=== PATIENT | female | born 1980 | race Caucasian/White ===

== ENCOUNTER 2020-03-27 13:06 | Emergency (ER) | payer OTHER, SELFPAY ==
[2020-03-27 13:21] VITALS: BP 144/88; PULSE 78; RESP 18; TEMP 36.8; O2SAT 100; BMI 31.1
--- NOTE | 2020-03-27 14:28 | ED_ITS ---
HPI - General Adult General Chief complaint: Recheck/Abnormal Lab/Rx Stated complaint: abnormal labs Time Seen by Provider: 03/27/20 14:11 Source: patient Mode of arrival: ambulatory Limitations: no limitations History of Present Illness HPI narrative: 39-year-old female who presents emergency department for evaluat ion elevated glucose of 228 noted at [facility]. The patient states that she has not been feeling well for approximately 1 month. She states that she has had increased thirst and increased urinary frequency. She states she has been feeling fatigued. She has had no change in her vision. She states that she has had approximately 5 lb of unintentional weight loss. She states that she started her menses and she started to feel worse. She was concerned that she might have diabetes and she bought a glucose monitor and her glucose at home was 280. She contacted her PCP's office but since she is in you patient, they could not get her in for an appointment until April of 2020 Related Data Previous Rx's Medication Instructions Recorded metformin 500 mg PO BID #60 tab 03/27/20 Allergies Allergy/AdvReac Type Severity Reaction Status Date / Time lactose Allergy Mild Stomach Uncoded 03/27/20 13:29 Upset PMFSH Past Medical History Medical History (Updated 03/27/20 @ 16:11 by Víctor Escalera MD) No known health problems Social History Social History Alcohol intake: never Smoking Status: Never smoker Use of substances other than those prescribed or required for medical reasons: No Advance Directives: No Advance Directives Information Provided: Yes Physical Exam Vital Signs: Vital Signs: Last Vital Signs Temp 98.7 F 03/27/20 15:06 Pulse 64 03/27/20 15:06 Resp 16 03/27/20 15:06 BP 142/85 H 03/27/20 15:06 Pulse Ox 100 03/27/20 15:06 Body Mass Index 31.1 Course Course Course Narrative: 39-year-old female who presents department evaluation fr equency, increased thirst and elevated glucose. Patient's physical examination was unremarkable. The patient's laboratory evaluation did reveal an elevated glucose of 212. Urine test was negative, urinalysis was positive for blood but the patient is menstruating. Patient's coags were normal. The patient's presentation is consistent with new onset diabetes, type 2. The patient is symptomatic. The patient cannot follow up with her PCP until 1 month from now I did discuss management of diabetes with the patient. After this discussion, it was decided the patient will be started on metformin Medical Decision Making Lab Data Result diagrams: 03/27/20 14:45 03/27/20 14:45 Labs: Lab Results 03/27/20 03/27/20 03/27/20 Range/Units 14:45 14:45 14:45 WBC 8.3 (4.8-10.8) X10*3/uL RBC 6.00 H (4.20-5.50) X10*6/uL Hgb 13.0 (12.0-16.0) g/dl Hct 41.2 (37-47) % MCV 68.7 L (80-98) fL MCH 21.7 L (27.0-33.0) pg MCHC 31.6 (31.0-35.0) g/dl RDW 14.6 (11.0-16.0) % Plt Count 359 (160-400) X10*3/uL MPV 10.1 (9.4-12.3) fL Immature Gran % (Auto) 0.4 (0.0-0.4) % Neut % (Auto) 70.5 (45-73) % Lymph % (Auto) 22.4 (20-40) % Hawkins % (Auto) 4.3 (2-11) % Eos % (Auto) 2.0 (0-4) % Baso % (Auto) 0.4 (0-2) % Lymph # (Auto) 1.9 (1.2-4.9) X10*3/uL Hawkins # (Auto) 0.4 (0.1-1.2) X10*3/uL Eos # (Auto) 0.2 (0.0-0.4) X10*3/uL Baso # (Auto) 0.0 (0.0-0.2) X10*3/uL Abs Immat Gran (auto) 0.03 (0.00-0.03) X10*3/uL Absolute Neuts (auto) 5.9 (2.0-8.3) X10*3/uL Absolute Nucleated RBC 0.000 (0.0-0.012) X10*3/uL Nucleated RBC % (auto) 0.0 (0.0-0.2) /100WBC PT 13.0 (10.8-13.0) SEC INR 1.1 (0.9-1.1) APTT 31.9 (24.1-38.0) SEC Sodium 136 (135-145) mmol/L Potassium 4.1 (3.3-5.1) mmol/L Chloride 101 (96-108) mmol/L Carbon Dioxide 25 (22-29) mmol/L Anion Gap 14 (12-20) BUN 11 (9-16) mg/dL Creatinine 0.89 (0.5-1.4) mg/dL Estim Creat Clear Calc 79.9 Estimated GFR > 60 Random Glucose 212 H (60-115) mg/dL Calcium 9.6 (8.4-10.2) mg/dL Total Bilirubin 0.9 (0.0-1.0) mg/dL AST 27 (5-31) U/L ALT 33 H (0-31) U/L Alkaline Phosphatase 96 (39-117) U/L Total Protein 8.3 H (6.5-8.0) g/dL Albumin 4.4 (3.5-5.0) g/dL Urine Color Urine Appearance Urine pH (5.0-8.0) Ur Specific [place] (1.005-1.025) Urine Protein (NEG-TRACE) MG/DL Urine Glucose (UA) (NEG) MG/DL Urine Ketones (NEG) MG/DL Urine Blood (NEG) Urine Nitrite (NEG) Ur Leukocyte Esterase (NEG) Urine RBC (0) /HPF Urine WBC (0-4) /HPF Ur Squamous Epith Cells /LPF Urine Bacteria /LPF Urine Test (NEGATIVE) 03/27/20 Range/Units 15:32 WBC (4.8-10.8) X10*3/uL RBC (4.20-5.50) X10*6/uL Hgb (12.0-16.0) g/dl Hct (37-47) % MCV (80-98) fL MCH (27.0-33.0) pg MCHC (31.0-35.0) g/dl RDW (11.0-16.0) % Plt Count (160-400) X10*3/uL MPV (9.4-12.3) fL Immature Gran % (Auto) (0.0-0.4) % Neut % (Auto) (45-73) % Lymph % (Auto) (20-40) % Hawkins % (Auto) (2-11) % Eos % (Auto) (0-4) % Baso % (Auto) (0-2) % Lymph # (Auto) (1.2-4.9) X10*3/uL Hawkins # (Auto) (0.1-1.2) X10*3/uL Eos # (Auto) (0.0-0.4) X10*3/uL Baso # (Auto) (0.0-0.2) X10*3/uL Abs Immat Gran (auto) (0.00-0.03) X10*3/uL Absolute Neuts (auto) (2.0-8.3) X10*3/uL Absolute Nucleated RBC (0.0-0.012) X10*3/uL Nucleated RBC % (auto) (0.0-0.2) /100WBC PT (10.8-13.0) SEC INR (0.9-1.1) APTT (24.1-38.0) SEC Sodium (135-145) mmol/L Potassium (3.3-5.1) mmol/L Chloride (96-108) mmol/L Carbon Dioxide (22-29) mmol/L Anion Gap (12-20) BUN (9-16) mg/dL Creatinine (0.5-1.4) mg/dL Estim Creat Clear Calc Estimated GFR Random Glucose (60-115) mg/dL Calcium (8.4-10.2) mg/dL Total Bilirubin (0.0-1.0) mg/dL AST (5-31) U/L ALT (0-31) U/L Alkaline Phosphatase (39-117) U/L Total Protein (6.5-8.0) g/dL Albumin (3.5-5.0) g/dL Urine Color RED Urine Appearance TURBID Urine pH 6.0 (5.0-8.0) Ur Specific [place] 1.020 (1.005-1.025) Urine Protein 1+ H (NEG-TRACE) MG/DL Urine Glucose (UA) 100 H (NEG) MG/DL Urine Ketones 40 (NEG) MG/DL Urine Blood 3+ H (NEG) Urine Nitrite NEG (NEG) Ur Leukocyte Esterase TRACE H (NEG) Urine RBC TNTC H (0) /HPF Urine WBC 0-2 (0-4) /HPF Ur Squamous Epith Cells NONE /LPF Urine Bacteria NONE /LPF Urine Test NEGATIVE (NEGATIVE) Discharge Plan Discharge Clinical Impression: New onset type 2 diabetes mellitus, Acute hyperglycemia, Acute dehydration Patient Disposition: Home, Self-Care Instructions: Diabetes and Nutrition (ED), Diabetes and Exercise (ED), Type 2 Diabetes Management for Adults (ED) Additional Instructions: Your symptoms and your elevated glucose is consistent with new onset diabetes. Take metformin 500 mg pills, 1 pill before breakfast and 1 pill before dinner. Check your glucose before breakfast and dinner. Write these values down so that you can show them to your doctor. Do not be concerned about any glucose that is less than 350. Over the next 1-2 weeks, while you taking metformin, your glucose should come down to more normal range. Watch for signs of low glucose (hypoglycemia), sweatiness, lightheadedness, dizziness, confusion. Usually your glucose has to drop below 60 for you to be symptomatic. If you developed the symptoms you should eat candy with sugar in it or orange juice with sugar in it to get your glucose of above 60 Prescriptions: New metformin 500 mg tablet 500 mg PO BID Qty: 60 RF: 0
[2020-03-27] MEDS: 0.9 % Sodium Chloride 1,000 ML 999 ML IV (14:50)
[2020-03-27 14:53] LABS: MANUAL DIFF FLAG NO
[2020-03-27 14:55] LABS: Basophils Percent Auto 0.4 % (0-2); Eosinophils Absolute Auto 0.2 X10*3/uL (0.0-0.4); Hematocrit 41.2 % (37-47); Imm Gran Abs Auto 0.03 X10*3/uL (0.00-0.03); Imm Gran Pct Auto 0.4 % (0.0-0.4); Lymphocytes Absolute Auto 1.9 X10*3/uL (1.2-4.9); Lymphocytes Percent Auto 22.4 % (20-40); Mean Corpuscular HGB Conc 31.6 g/dl (31.0-35.0); Mean Corpuscular Hemoglobin 21.7 pg (27.0-33.0); Mean Corpuscular Volume 68.7 fL (80-98); Mean Platelet Volume 10.1 fL (9.4-12.3); Monocytes Absolute Auto 0.4 X10*3/uL (0.1-1.2); Monocytes Percent Auto 4.3 % (2-11); Neutrophils Absolute Auto 5.9 X10*3/uL (2.0-8.3); Neutrophils Percent Auto 70.5 % (45-73); Platelet Count 359 X10*3/uL (160-400); Red Cell Distribution Width 14.6 % (11.0-16.0); White Blood Count 8.3 X10*3/uL (4.8-10.8)
--- NOTE | 2020-03-27 14:57 | PC.NURSE ---
WHEN PLACING 20 G IV IN R AC, BLOOD DRAWN WITHOUT DIFFICULTY,BUT THEN WHEN FLUSHING, 1/2 WAY THROUGH IT BECAME DIFFICULT AND UNABLE TO FLUSH, THE J LOOP WAS CLOTTED AND I REPLACED IT WITH A NEW ONE, THE 2ND ONE WORKED PERFECTLY INITIALLY THE AGAIN THERE WAS RESISTANCE AND UNABLE TO FLUSH, HOWEVER THIS TIME WAS ABLE TO FLUSH IT WITH ANOTHER SYRINGE, INFORMED AND COAGULATION STUDIES ADDED BY ,
[2020-03-27 15:06] VITALS: BP 142/85; PULSE 64; RESP 16; TEMP 37.1; O2SAT 100
[2020-03-27 15:18] LABS: Alanine Aminotransferase 33 U/L (0-31); Albumin Level 4.4 g/dL (3.5-5.0); Alkaline Phosphatase 96 U/L (39-117); Anion Gap 14 (12-20); Aspartate Amino Transferase 27 U/L (5-31); Bilirubin Total 0.9 mg/dL (0.0-1.0); Blood Urea Nitrogen 11 mg/dL (9-16); Calcium 9.6 mg/dL (8.4-10.2); Carbon Dioxide 25 mmol/L (22-29); Chloride 101 mmol/L (96-108); Creatinine Clr Calc Pharmacy 79.9; Estimated Glomerular Filt Rate > 60; Glucose Random 212 mg/dL (60-115); Potassium 4.1 mmol/L (3.3-5.1); Sodium 136 mmol/L (135-145); Total Protein 8.3 g/dL (6.5-8.0)
[2020-03-27 15:53] LABS: INTERNATIONAL NORM RATIO 1.1 (0.9-1.1)
[2020-03-27 15:53] LABS: Glucose Urine UA 100 MG/DL (NEG); Leukocyte Esterase Urine TRACE (NEG); Nitrite Urine NEG (NEG); UACC Culture Trigger YES; Urine Blood 3+ (NEG); Urine Ketones 40 MG/DL (NEG); Urine Protein 1+ MG/DL (NEG-TRACE)
[2020-03-27 15:56] LABS: Partial Thromboplastin Time 31.9 SEC (24.1-38.0)
[2020-03-27 16:01] LABS: Appearance Urine TURBID; Color Urine RED; RBC Urine TNTC /HPF (0); WBC Urine 0-2 /HPF (0-4)
[2020-03-27 16:02] LABS: UPreg QC Valid OK; Urine Pregnancy NEGATIVE (NEGATIVE)
== END 2020-03-27 16:31 | disposition home or self-care (01) ==
PROVIDERS: Emergency Provider Emergency Medicine Emergency Medical Services; PCP Internal Medicine
DX: E11.65 Type 2 diabetes mellitus with hyperglycemia (principal); E86.0 Dehydration
CPT/HCPCS: 36415; 80053; 81001; 81003; 81025; 85025; 85610; 85730; 87086; 87147; 96360; 99284

== ENCOUNTER 2020-03-31 09:14 | Outpatient (REF) | payer OTHER, SELFPAY ==
[2020-03-31 12:08] LABS: Cholesterol 123 mg/dL; HDL Cholesterol 50 mg/dL; LDL Cholesterol Calculated 66 mg/dl; Triglycerides 35 mg/dL
== END 2020-03-31 09:15 | disposition home or self-care (01) ==
LOC: HO.HMGCLDS 09:14
PROVIDERS: PCP Internal Medicine; Visit Provider Internal Medicine
DX: E11.65 Type 2 diabetes mellitus with hyperglycemia (principal)
CPT/HCPCS: 36415; 80061

== ENCOUNTER 2020-04-02 10:12 | Outpatient (REF) | payer OTHER, SELFPAY ==
[2020-04-02 12:43] LABS: Creatinine Urine 53.67 mg/dL; Microalbumin Urine < 5.0 mg/L
== END 2020-04-02 10:13 | disposition home or self-care (01) ==
LOC: HO.HMGCLNP 10:12
PROVIDERS: Visit Provider Internal Medicine
DX: E11.65 Type 2 diabetes mellitus with hyperglycemia (principal)
CPT/HCPCS: 82043

== ENCOUNTER → 2020-05-14 08:29 | Outpatient (BNVA) | payer OTHER, SELFPAY | PROVIDERS: PCP Internal Medicine; Visit Provider Nurse Practitioner Gerontology | DX: E11.65 Type 2 diabetes mellitus with hyperglycemia (principal); E66.3 Overweight | CPT/HCPCS: 82947 ==

== ENCOUNTER 2020-06-05 07:56 | Outpatient (REF) | payer OTHER, SELFPAY ==
[2020-06-05 09:18] LABS: Anion Gap 12 (12-20); Blood Urea Nitrogen 10 mg/dL (9-16); Calcium 9.4 mg/dL (8.4-10.2); Carbon Dioxide 27 mmol/L (22-29); Chloride 103 mmol/L (96-108); Estimated Glomerular Filt Rate > 60; Glucose Fasting 127 mg/dL (60-99); Potassium 4.4 mmol/L (3.3-5.1); Sodium 138 mmol/L (135-145)
[2020-06-05 09:41] LABS: Thyroid Stimulating Hormone 1.97 uIU/mL (0.32-4.0)
[2020-06-06 07:16] LABS: C Peptide 1.51 ng/mL (0.80-3.85)
[2020-06-09 08:52] LABS: Glutamic acid decarboxylase Ab <5 IU/mL (<5)
[2020-06-12 02:22] LABS: Islet Cell Antibody Screen NEGATIVE (NEGATIVE)
== END 2020-06-05 07:57 | disposition home or self-care (01) ==
LOC: HO.LAB 07:56
PROVIDERS: PCP Internal Medicine; Visit Provider Nurse Practitioner Gerontology
DX: E11.65 Type 2 diabetes mellitus with hyperglycemia (principal)
CPT/HCPCS: 36415; 80048; 83525; 84443; 84681; 86255; 86341

== ENCOUNTER → 2020-07-28 12:34 | Outpatient (BNVA) | payer OTHER, SELFPAY | PROVIDERS: PCP Internal Medicine; Visit Provider Dietitian, Registered | DX: E11.65 Type 2 diabetes mellitus with hyperglycemia (principal) | CPT/HCPCS: 97802 ==

== ENCOUNTER → 2020-08-10 07:17 | Outpatient (BNVA) | payer OTHER, SELFPAY | PROVIDERS: PCP Internal Medicine; Visit Provider Nurse Practitioner Gerontology | DX: E11.65 Type 2 diabetes mellitus with hyperglycemia (principal); E66.3 Overweight | CPT/HCPCS: 82947 ==

== ENCOUNTER → 2021-04-18 14:59 | Outpatient (BNVA) | payer OTHER, SELFPAY | PROVIDERS: PCP Internal Medicine; Visit Provider Nurse Practitioner Gerontology ==

== ENCOUNTER → 2021-05-12 15:15 | Outpatient (BNVA) | payer OTHER, SELFPAY | PROVIDERS: PCP Internal Medicine; Visit Provider Registered Nurse Diabetes Educator | DX: Z13.89 Encounter for screening for other disorder (principal) ==

== ENCOUNTER 2021-08-26 09:06 | Outpatient (REF) | payer OTHER, SELFPAY ==
[2021-08-26 11:49] LABS: Alanine Aminotransferase 18 U/L (0-31); Anion Gap 11 (12-20); Aspartate Amino Transferase 15 U/L (5-31); Blood Urea Nitrogen 10 mg/dL (9-16); Calcium 8.9 mg/dL (8.4-10.2); Carbon Dioxide 25 mmol/L (22-29); Chloride 105 mmol/L (96-108); Cholesterol 129 mg/dL; Estimated Glomerular Filt Rate > 60; Glucose Fasting 124 mg/dL (60-99); HDL Cholesterol 48 mg/dL; LDL Cholesterol Calculated 70 mg/dl; Potassium 4.2 mmol/L (3.3-5.1); Sodium 137 mmol/L (135-145); Triglycerides 58 mg/dL
[2021-08-26 12:00] LABS: Creatinine Urine 88.06 mg/dL; Microalbumin Urine < 5.0 mg/L
[2021-08-26 12:16] LABS: Vitamin D 25-OH Total 41.4 ng/mL (>30)
[2021-08-29 01:46] LABS: LDL Cholesterol Direct 69 mg/dL (<100)
== END 2021-08-26 09:07 | disposition home or self-care (01) ==
LOC: HO.HMGCLDS 09:06
PROVIDERS: PCP Internal Medicine; Visit Provider Internal Medicine
DX: Z00.01 Encounter for general adult medical examination with abnormal findings (principal); E11.9 Type 2 diabetes mellitus without complications; E66.3 Overweight; Z79.4 Long term (current) use of insulin
CPT/HCPCS: 36415; 80048; 80061; 82043; 82306; 83721; 84450; 84460

== ENCOUNTER 2022-11-02 07:26 | Outpatient (REF) | payer OTHER, SELFPAY ==
[2022-11-02 12:06] LABS: Alanine Aminotransferase 20 U/L (0-31); Anion Gap 11 (12-20); Aspartate Amino Transferase 17 U/L (5-31); Blood Urea Nitrogen 10 mg/dL (9-16); Calcium 9.3 mg/dL (8.4-10.2); Carbon Dioxide 22 mmol/L (22-29); Chloride 108 mmol/L (96-108); Cholesterol 126 mg/dL (<200); Estimated Glomerular Filt Rate > 60; Glucose Fasting 130 mg/dL (60-99); HDL Cholesterol 51 mg/dL (>40); LDL Cholesterol Calculated 66 mg/dL (<100); Sodium 137 mmol/L (135-145); Triglycerides 47 mg/dL (<150)
[2022-11-02 12:19] LABS: Estimated Average Glucose 154 mg/dL
[2022-11-02 12:25] LABS: Rheumatoid Factor < 13.0 IU/mL (<15.0)
[2022-11-02 12:51] LABS: Erythrocyte Sedimentation Rate 20 MM/HR (0-20)
[2022-11-02 13:09] LABS: Creatinine Urine 134.79 mg/dL; Microalbumin Urine < 5.0 mg/L
[2022-11-08 09:54] LABS: CRP High Sensitivity 4.7 mg/L
[2022-11-08 12:13] LABS: Anti Nuclear Antibody Screen POSITIVE (NEGATIVE)
== END 2022-11-02 07:27 | disposition home or self-care (01) ==
LOC: HO.HMGCLDS 07:26
PROVIDERS: PCP Internal Medicine; Visit Provider Internal Medicine
DX: E11.9 Type 2 diabetes mellitus without complications (principal); E66.9 Obesity, unspecified; M25.50 Pain in unspecified joint; Z79.4 Long term (current) use of insulin; Z82.61 Family history of arthritis
CPT/HCPCS: 36415; 80048; 80061; 82043; 82570; 83036; 84450; 84460; 85652; 86038; 86039; 86141; 86431

== ENCOUNTER 2022-12-04 11:46 | Outpatient (AMB) | payer OTHER, SELFPAY ==
--- NOTE | 2022-12-04 12:21 | A.OFFPC_ITS ---
Vital Signs 12/04/22 12:22 Height 5 ft 2 in Weight 172 lb 2 oz BMI 31.5 BP 122/82 Blood Pressure Location Lt brachial Position Sitting Pulse 67 Pulse Source Pulse Oximeter Pulse Oximetry (%) 100 Oxygen Delivery Method Room Air Intake Visit Reasons: follow up, labs review Intake Note: Patient is here today to follow up labs, Pt also states has stomach concerns. Allergies lactose Adverse Reaction (Mild, Uncoded 12/04/22 12:44) Stomach Upset Medication List - Last Reconciled 12/04/22 by Sowmya Castellanos MD blood sugar diagnostic (OneTouch Verio test strips) to test blood glucose two times a day blood-glucose meter (OneTouch Verio Flex Meter) to test blood glucose two times a day lancets (OneTouch Delica Lancets) As directed twice a day lancets (FreeStyle Lancets) As directed three time a day metformin 500 mg PO BID Tobacco use date assessed: 12/04/22 Dental Screening Dental Screen Date: 12/04/22 Did you have a dental visit in the last 12 months?: Yes Did you have a dental problem in the last 6 months where you did not have access to dental care?: No Was dental information given to patient?: Patient has dentist HPI follow up, labs review HPI Details 42-year-old lady here today for follow-u p on her diabetes mellitus, currently on metformin 500 mg 1 tablet twice a day, with latest hemoglobin A1c at 7%, higher than last check. , her fasting lipids are within normal limits, Complains of irregular bowel movements, with passage of frequent loose stools accompanied by abdominal bloating , causing pain behind her lower back this has been present now for the last several months and seems to be getting more frequent. She has avoided drinking almond milk, which she found to trigger these symptoms, has been avoiding a lot of salt, eat a bland diet. [facility] Medical History (Updated 12/04/22 @ 13:07 by Sowmya Castellanos MD) Irregular bowel habits Family history of colon cancer in mother Arthralgia of multiple joints Positive JACKIE (antinuclear antibody) Elevated C-reactive protein (CRP) Family history of rheumatoid arthritis Obesity (BMI 30.0-34.9) Diabetes mellitus without complication, with long-term current use of insulin Surgical History History of lumpectomy of right breast History of lumpectomy of left breast History of tubal ligation History of section Family History Father Diabetes mellitus Mother Breast cancer Colon cancer Uterine cancer Anxiety Depression HTN (hypertension) Asthma Stroke Mental health disorder Leiomyosarcoma Maternal Aunt Stomach cancer Brother No problems noted. Son No problems noted. Daughter No problems noted. Maternal Grandmother Diabetes mellitus Social History Household Members: Family Housing: House Alcohol intake: never Patient Tobacco Use Status: Never used Tobacco e-Cigarette/Vaping Use: Never Used Second Hand Smoke Exposure: No service: No Current occupational status: employed Cognitive needs: No Hearing needs: No Vision needs: Yes Questionnaire PHQ-9 Over the last 2 weeks, how often have you been bothered by any of the following problems? Depression Screening Interpretation: Negative Depression Screening Done: Yes Source: Developed by Drs. Mk Ireland, Delia Le, Chepe Machuca and colleagues, with an educational caroline from [employer]. Thrive Questionnaire Date Thrive assessed: 05/11/22 AUDIT C Alcohol Use Questionnaire (AUDIT-C) 1. How often do you have a drink containing alcohol?: Never 3. How often do you have six or more drinks on one occasion?: Never Total Score: 0 Score Reviewed/Action Taken: Yes DIANNE-7 AMB Questionnaire DIANNE-7 Date DIANNE - 7 assessed: 05/11/22 Source: Developed by Drs. Mk Ireland, Delia Le, Chepe Machuca and colleagues, with an educational caroline from [employer]. Review of Systems Const Denies headache(s) Eyes Details: sees [facility] [employer] for her retinopathy screen Denies blurry vision ENT Denies dizziness, Denies dry mouth, Denies headache(s), Denies nasal congestion and Denies sore throat Card Denies chest pain, Denies palpitations and Denies dyspnea Resp Denies cough, Denies dyspnea and Denies wheezing GI Reports as per HPI, Denies melena, Denies hematochezia, Denies heartburn, Denies fecal incontinence and Denies nausea Denies urinary frequency and Denies dysuria Musc Reports as per HPI, Reports arthralgias (elbows and upper back), Denies joint swelling, Denies muscle weakness, Denies numbness and Denies tingling Skin/Breast Denies breast swelling, Denies breast mass, Denies lesions and Denies rash Neuro Denies burning sensations, Denies dizziness, Denies headache(s), Denies numb ness, Denies tingling and Denies paresthesias Endo Denies polydipsia, Denies polyuria and Denies palpitations Chris/Lymph Denies easy bruising Aller/Immun Reports no additional complaints and Denies wheezing Physical exam (Primary Care) Vital Signs: Last Vital Signs Pulse 67 12/04/22 12:22 BP 122/82 12/04/22 12:22 Pulse Ox 100 12/04/22 12:22 Oxygen Delivery Method Room Air 12/04/22 12:22 BMI result Body Mass Index 31.5 BMI Assessment/Plan discussion: High BMI High, discussed plan: lifestyle, weight reduction, dietary and physical activity Tobacco/Smoking Status: Tobacco use Status Tobacco use date assessed 12/04/22 12/04/22 12:24 Patient Tobacco Use Status Never used Tobacco 12/04/22 12:24 e-Cigarette/Vaping Use Never Used 12/04/22 12:24 Depression Screening Interpretation: Negative Thrive Assessment: Date of Thrive Assessment Date Thrive assessed 05/11/22 12/04/22 12:24 Const General: cooperative, comfortable and no acute distress Orientation/consciousness: patient oriented x3 Limitations: no limitations HENMT Mouth: Normal oral and palatal mucosa present, oropharynx normal and moist mucous membranes Eyes General: appearance normal, both eyes and all related structures Neck Neck: Yes full ROM, Yes no lymphadenopathy and Yes supple Resp Effort & Inspection: normal respiratory effort and able to speak in complete sentences Auscultation: clear to auscultation bilaterally Cardio Rate: regular rate Rhythm: regular rhythm Heart sounds: S1 normal heart sound present and S2 normal heart sound present GI Palpation (GI): Soft to palpation, nontender, no guarding and no masses Skin General skin exam: no rashes or lesions noted Neuro General: patient oriented x3, gait normal, tone normal, moves all extremities and no focal motor deficits Cognition (Neuro): normal cognition Gait exam (Neuro): Normal gait present Motor exam (neuro): 5/5 motor strength present throughout Extrem General: Yes full ROM, Yes no joint enlargement, Yes no pedal edema, Yes no calf tenderness and Yes normal gait Psych Appearance: grossly normal and well kempt Mental Status: mental status grossly normal Speech and movement: Normal speech and movement present Attitude: cooperative Thought process: Normal thought process present Thought content: Normal thought content present Results Reviewed Results Reviewed: ENTERED: 11/02/22 KEITH BANKS: ORDERED: Met Prof Fast, AST, ALT, Lipid Panel Test Result Flag Reference Site Sodium 137 135-145 mmol/L Potassium 4.0 3.3-5.1 mmol/L CL 108 96-108 mmol/L CO2 22 22-29 mmol/L Gap 11 L 12-20 BUN 10 9-16 mg/dL Creat 0.80 0.5-1.4 mg/dL EGFR > 60 NOTE: For -Iraqi individuals, multiply the result by 1.210. Chronic Kidney Disease: Estimated GFR < 60 mL/min/1.73m2 Severe Kidney Disease: Estimated GFR < 15 mL/min/1.73m2 FBS 130 H 60-99 mg/dL A fasting glucose of 126 mg/dl or greater on more than one occasion is considered diagnostic of diabetes. CA 9.3 8.4-10.2 mg/dL AST (GOT) 17 5-31 U/L ALT (GPT) 20 0-31 U/L Triglyceride 47 <150 mg/dL Desirable Triglyceride: less than 150 mg/dL Borderline High Triglyceride 150-199 mg/dL High Triglyceride: 200-499 mg/dL Very High Triglyceride: greater than or equal to 5OO mg/dL Cholesterol 126 <200 mg/dL Desirable Cholesterol: less than 200 mg/dL Borderline High Cholesterol: 200-239 mg/dL High Cholesterol: greater than 239 mg/dL LDL Calculated 66 <100 mg/dL Desirable LDL: less than 100 mg/dL Near Optimal/Above Optimal LDL: 110-129 mg/dL Borderline High LDL: 130-159 mg/dL High LDL: 160-189 mg/dL Very High LDL: greater than or equal to 190 mg/dL HDL 51 >40 mg/dL Desirable HDL: greater than 40 mg/dL Note: This HDL assay may give artificially low results in patients with liver disease. 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 Metformin 500 mg 1 tablet twice a day and continue to check fasting blood sugar at home, maintain log and bring to next appointment for review. Reinforced diabetic diet and regular exercise with patient. Counseled regarding importance of yearly diabetes retinopathy screening. Patient advised to inspect feet daily, for any signs of injury, callus or infection. Compliance with diet and regular exercise again stressed. Blood pressure goal is less than 130/80, goal LDL is less than 100 and goal hemoglobin A1c is less than 7% follow-up appointment made in--3-months, after fasting labs done. Flu vaccine given today, reminded to get her COVID booster (2) Family history of colon cancer in mother: Code(s): Z80.0 - Family history of malignant neoplasm of digestive organs Plan: Referred to GI for further evaluation and screening (3) Irregular bowel habits: Code(s): R19.8 - Other specified symptoms and signs involving the digestive system and abdomen Plan: Ordered referral to see Dr. Ovalle for further evaluation. Restarted on dicyclomine 20 mg per tablet to take 1 tablet twice a day at 15 units before eating avoidance of food triggers (4) Abdominal bloating with cramps: Code(s): R14.0 - Abdominal distension (gaseous); R10.9 - Unspecified abdominal pain Plan: Discussed avoidance of certain foods. Empirically started on dicyclomine 20 mg per tablet to take 1 tablet twice a day before meals. GI consult ordered Orders: Orders Hemoglobin A1c 3 Months E11.9 - Type 2 diabetes mellitus without complications, E66.9 - Obesity, unspecified, Z79.4 - predatory animal exterminator (current) use of insulin Alanine Aminotransferase 3 Months E11.9 - Type 2 diabetes mellitus without complications, E66.9 - Obesity, unspecified, Z79.4 - USP (current) use of insulin Aspartate Amino Transferase 3 Months E11.9 - Type 2 diabetes mellitus without complications, E66.9 - Obesity, unspecified, Z79.4 - USP (current) use of insulin Basic Metabolic Panel Fasting 3 Months E11.9 - Type 2 diabetes mellitus without complications, E66.9 - Obesity, unspecified, Z79.4 - predatory animal exterminator (current) use of insulin Lipid Panel 3 Months E11.9 - Type 2 diabetes mellitus without complications, E66.9 - Obesity, unspecified, Z79.4 - USP (current) use of insulin Microalbumin, Random (w Creat) 3 Months E11.9 - Type 2 diabetes mellitus without complications, E66.9 - Obesity, unspecified, Z79.4 - predatory animal exterminator (current) use of insulin Influenza [id number] Immunization Today Z23 - Encounter for immunization Referrals Gastroenterology Referral R10.9 - Unspecified abdominal pain, R14.0 - Abdominal distension (gaseous), R19.8 - Other specified symptoms and signs involving the digestive system and abdomen, Z80.0 - Family history of malignant neoplasm of digestive organs Medications: New dicyclomine 20 mg PO BID 60 tabs 0RF flu vacc [id number] 6mos up(PF) 0.5 mL IM ONCE 0.5 mL 0RF Z23 - Encounter for immunization Coding Level of Care Code Est Pt Level 4 (31090) Diagnoses Diabetes mellitus without complication, with long-term current use of insulin E11.9; Z79.4 Family history of colon cancer in mother Z80.0 Irregular bowel habits R19.8 Abdominal bloating with cramps R14.0; R10.9
[2022-12-04 12:22] VITALS: BP 122/82; PULSE 67; O2SAT 100; BMI 31.5
== END 2022-12-04 13:13 | disposition home or self-care (01) ==
PROVIDERS: PCP Internal Medicine; Visit Provider Internal Medicine
DX: E11.9 Type 2 diabetes mellitus without complications (principal); Z79.4 Long term (current) use of insulin; Z80.0 Family history of malignant neoplasm of digestive organs; R19.8 Other specified symptoms and signs involving the digestive system and abdomen; R14.0 Abdominal distension (gaseous); R10.9 Unspecified abdominal pain; Z23 Encounter for immunization
CPT/HCPCS: 90471; 90686; 99214

== ENCOUNTER 2022-12-14 12:51 | Outpatient (AMB) | payer OTHER, SELFPAY ==
[2022-12-14 13:07] VITALS: BP 118/80; PULSE 78; TEMP 36.6; O2SAT 100; BMI 30.8
--- NOTE | 2022-12-14 13:07 | A.OFFVIS_ITS ---
Intake Vital Signs 12/14/22 13:07 Height 5 ft 2 in Weight 168 lb 6.931 oz BMI 30.8 BP 118/80 Blood Pressure Location Rt brachial Position Sitting Pulse 78 Pulse Source Pulse Oximeter Temp 97.9 F Temp Source Skin Pulse Oximetry (%) 100 Intake Visit Reasons: Elev CRP/Joint pain Intake Note: New pt presents today for consult. Pt has elevated CRP, positive JACKIE and family hx of FM, RA and Lupus. She states she has been under a lot of stress since mom was dxd with leomyosarcoma, mom April 2022. C/o pain in multiple joints, headaches. User Experience Designer Required: No Accompanied by: Self / Same As Patient Allergies lactose Adverse Reaction (Mild, Uncoded 12/14/22 13:13) Stomach Upset Medication List - Last Reconciled 12/14/22 by Dyan Billings MD blood sugar diagnostic ([employer] Verio test strips) to test blood glucose two times a day blood-glucose meter ([employer] Verio Flex Meter) to test blood glucose two times a day dicyclomine 20 mg PO BID lancets (OneTouch Delica Lancets) As directed twice a day lancets (FreeStyle Lancets) As directed three time a day metformin 500 mg PO BID multivitamin 1 tab PO DAILY HPI HPI Comments History of Present Illness Details This is a 42-year-old female who presents for for evaluation of a positive JACKIE. Patient has been having fatigue, muscle weakness. Muscle aches in her neck, shoulders and elbows. Her pain is generally worse with activity. Patient states that she sleeps well. She her walks for 20-30 minutes 3 to 4 times a week. She denies any skin rashes, fevers or weight loss. She denies any history of DVT/PE. States that he has an aunt with lupus. Her mother had rheumatoid arthritis, multiple cancers and this year of Leiomysarcoma [facility] Medical History Irregular bowel habits Family history of colon cancer in mother Arthralgia of multiple joints Positive JACKIE (antinuclear antibody) Elevated C-reactive protein (CRP) Family history of rheumatoid arthritis Obesity (BMI 30.0-34.9) Diabetes mellitus without complication, with long-term current use of insulin Surgical History History of lumpectomy of right breast History of lumpectomy of left breast History of tubal ligation History of section Family History Father Diabetes mellitus Mother Breast cancer Colon cancer Uterine cancer Anxiety Depression HTN (hypertension) Asthma Stroke Mental health disorder Leiomyosarcoma Fibromyalgia Rheumatoid arthritis Maternal Aunt Stomach cancer Brother No problems noted. Son No problems noted. Daughter No problems noted. 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 Cognitive needs: No Hearing needs: No Vision needs: Yes Female Reproductive History Menstrual Total pregnancies: 4 Full term: 2 Ab spontaneous: 2 Review of Systems Const Reports fatigue, Reports headache(s) and Reports weakness ENT Reports headache(s) Musc Reports arthralgias Skin/Breast Reports alopecia and Denies rash Neuro Reports headache(s), Reports memory loss and Reports weakness Psych Reports memory loss Endo Reports fatigue Physical Exam Vital Signs: Last Vital Signs Temp 97.9 F 12/14/22 13:07 Pulse 78 12/14/22 13:07 BP 118/80 12/14/22 13:07 Pulse Ox 100 12/14/22 13:07 BMI result Body Mass Index 30.8 Const General: cooperative, healthy appearing and comfortable Nutritional Appearance: overweight Orientation/consciousness: patient oriented x3 Limitations: no limitations HEENT Head: Yes normocephalic and Yes atraumatic Mouth: moist mucous membranes Resp Effort & Inspection: normal respiratory effort and able to speak in complete sentences Auscultation: clear to auscultation bilaterally Cardio Rate: regular rate Rhythm: regular rhythm GI Inspection: No distended Palpation (GI): Soft to palpation and nontender Skin General skin exam: no rashes or lesions noted Neuro General: patient oriented x3 Extrem Other: Tenderness to palpation at the common flexor origin bilaterally With positive resisted wrist flexion test No active synovitis otherwise Normal nailfold capillaroscopy Assessment & Plan Assessment & Plan (1) Positive JACKIE (antinuclear antibody): Code(s): R76.8 - Other specified abnormal immunological findings in serum Plan: This is a 42-year-old female who presents for evaluation of a positive JACKIE 1-320 dfs pattern. I do not see any signs of an autoimmune rheumatic disease. Explained to patient that about 20% of the population can have a positive JACKIE. Follow-up as needed (2) Bilateral medial epicondylitis of elbow joint: Code(s): M77.01 - Medial epicondylitis, right elbow; M77.02 - Medial epicondylitis, left elbow Plan: For to occupational therapy (3) Fibromyalgia, primary: Code(s): M79.7 - Fibromyalgia Plan: Discussed management of fibromyalgia with patient. Is a noninflammatory, non- autoimmune central afferent processing disorder leading to a diffuse pain syndrome. I suggested that patient try to address her underlying psychiatric issues, anxiety/depression. I suggested evaluation by a therapist and/or a psychiatrist. Consider a referral for a sleep study by her PCP to rule out obstructive sleep apnea. Patient walks with 20-30 minutes 3 to 4 times a week. Advised patient to continue exercising and consider other low-impact exercises such as stretching, yoga, aquatherapy or swimming. Follow-up with PCP Plan I spent 35 minutes reviewing patient's chart, evaluating patient, placing orders , counseling patient and documenting in the chart Orders: Orders OT Evaluation and Treatment Today M77.01 - Medial epicondylitis, right elbow, M77.02 - Medial epicondylitis, left elbow Coding Level of Care Code New Pt Level 3 (89619) Diagnoses Positive JACKIE (antinuclear antibody) R76.8 Bilateral medial epicondylitis of elbow joint M77.01; M77.02 Fibromyalgia, primary M79.7
== END 2022-12-14 13:45 | disposition home or self-care (01) ==
PROVIDERS: PCP Internal Medicine; Visit Provider Student in an Organized Health Care Education/Training Program
DX: R76.8 Other specified abnormal immunological findings in serum (principal); M77.01 Medial epicondylitis, right elbow; M77.02 Medial epicondylitis, left elbow; M79.7 Fibromyalgia
CPT/HCPCS: 99203

== ENCOUNTER → 2022-12-14 12:51 | Outpatient (BNVA) | payer OTHER, SELFPAY | PROVIDERS: PCP Internal Medicine; Visit Provider Student in an Organized Health Care Education/Training Program ==

== ENCOUNTER 2023-01-10 13:23 | Outpatient (AMB) | payer OTHER, SELFPAY ==
--- NOTE | 2023-01-10 13:26 | MHC.OFFVIS ---
Intake Vital Signs 01/10/23 13:27 Height 5 ft 2 in Weight 160 lb BMI 29.3 BP 115/60 Blood Pressure Location Lt brachial Position Sitting Pulse 74 Intake Visit Reasons: Colonoscopy Screening / Abdominal pain Allergies lactose Adverse Reaction (Mild, Uncoded 12/14/22 13:13) Stomach Upset PFSH Medical History Irregular bowel habits Family history of colon cancer in mother Arthralgia of multiple joints Positive JACKIE (antinuclear antibody) Elevated C-reactive protein (CRP) Family history of rheumatoid arthritis Obesity (BMI 30.0-34.9) Diabetes mellitus without complication, with long-term current use of insulin Surgical History History of lumpectomy of right breast History of lumpectomy of left breast History of tubal ligation History of section Family History Father Diabetes mellitus Mother Breast cancer Colon cancer Uterine cancer Anxiety Depression HTN (hypertension) Asthma Stroke Mental health disorder Leiomyosarcoma Fibromyalgia Rheumatoid arthritis Maternal Aunt Stomach cancer Brother No problems noted. Son No problems noted. Daughter No problems noted. 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
--- NOTE | 2023-01-10 13:26 | MHC.OFFVIS ---
Intake Vital Signs 01/10/23 13:27 Height 5 ft 2 in Weight 160 lb BMI 29.3 BP 115/60 Blood Pressure Location Lt brachial Position Sitting Pulse 74 Intake Visit Reasons: Colonoscopy Screening / Abdominal pain Intake Note: New consult for 2nd pre colonoscopy screening and abdominal pain. Patient cc: abdominal pain with bloating on and off, loose BM and denies any other GI issues. Sign Language Teacher Required: No Accompanied by: Self / Same As Patient Allergies lactose Adverse Reaction (Mild, Uncoded 12/14/22 13:13) Stomach Upset Medication List - Last Reconciled 01/10/23 by Skylar Mack PA-C blood sugar diagnostic ([employer] Verio test strips) to test blood glucose two times a day blood-glucose meter ([employer] Verio Flex Meter) to test blood glucose two times a day dicyclomine 20 mg PO BID lancets ([employer] Delica Lancets) As directed twice a day lancets (FreeStyle Lancets) As directed three time a day metformin 500 mg PO BID multivitamin 1 tab PO DAILY HPI HPI Comments History of Present Illness Details A 42-year-old female referred with alternating stool pattern for several months-she became very anxious her mom was ill- she in April Hasn't been able to really grieve- Fiber not helpful- tried gluten free - She has elevated JACKIE- and elevated crp- seeing Rheum Colonoscopy 2018-family history colon- mother- 40s- Appetite good- BM- alternate- pain subsides after BM\ She has urgency in A. M- after intercourse- saw OFFICE DIRECTOR- fibroids Other days no issues= No N/V/ D- [facility] Medical History Irregular bowel habits Family history of colon cancer in mother Arthralgia of multiple joints Positive JACKIE (antinuclear antibody) Elevated C-reactive protein (CRP) Family history of rheumatoid arthritis Obesity (BMI 30.0-34.9) Diabetes mellitus without complication, with long-term current use of insulin Surgical History History of lumpectomy of right breast History of lumpectomy of left breast History of tubal ligation History of section Family History Father Diabetes mellitus Mother Breast cancer Colon cancer Uterine cancer Anxiety Depression HTN (hypertension) Asthma Stroke Mental health disorder Leiomyosarcoma Fibromyalgia Rheumatoid arthritis Maternal Aunt Stomach cancer Brother No problems noted. Son No problems noted. Daughter No problems noted. 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 Cognitive needs: No Hearing needs: No Vision needs: Yes Review of Systems Const All systems reviewed & are unremarkable except as noted in HPI and below Card Denies chest pain and Denies dyspnea Resp Denies dyspnea GI Reports GI cramping, Reports loose stools, Denies nausea and Denies vomiting Physical Exam Vital Signs: Last Vital Signs Pulse 74 01/10/23 13:27 BP 115/60 01/10/23 13:27 BMI result Body Mass Index 29.3 Const General: cooperative, healthy appearing, comfortable and no acute distress Orientation/consciousness: patient oriented x3 Limitations: no limitations Eyes Sclerae: sclerae normal Resp Effort & Inspection: normal respiratory effort and able to speak in complete sentences Auscultation: clear to auscultation bilaterally, no rales, no rhonchi and no wheezes Cardio Rate: regular rate Rhythm: regular rhythm Heart sounds: S1 normal heart sound present and S2 normal heart sound present GI Palpation (GI): Soft to palpation and nontender Auscultation: normal bowel sounds Skin General skin exam: no rashes or lesions noted Neuro General: patient oriented x3 Extrem General: Yes full ROM Psych Appearance: grossly normal and well kempt Mental Status: mental status grossly normal Speech and movement: Normal speech and movement present and Clear speech present Affect: Sad affect present Thought process: Normal thought process present Thought content: Normal thought content present Assessment & Plan Assessment & Plan (1) Abdominal pain: Code(s): R10.9 - Unspecified abdominal pain (2) Family history of colon cancer in mother: Comment: patient anxious due to family history As well she may have underlying autoimmune disease she is follow-up rheumatology Code(s): Z80.0 - Family history of malignant neoplasm of digestive organs (3) Irregular bowel habits: Comment: May have functional component, however further evaluation is warranted With get colonoscopy to rule underlying cause, however if normal will be reassured Code(s): R19.8 - Other specified symptoms and signs involving the digestive system and abdomen Plan: colonoscopy r/o-inflammatory or infectious cause Plan Colonoscopy MG prep omit metformin eitan before dicyclomine F/U Rheum Orders: Orders Colonoscopy - GI Use Only 01/10/23 R10.9 - Unspecified abdominal pain, R19.8 - Other specified symptoms and signs involving the digestive system and abdomen, Z80.0 - Family history of malignant neoplasm of digestive organs Medications: New bisacodyl (Dulcolax (bisacodyl)) Day before procedure, prep day Take 4 tablets by mouth upon awakening followed by large glass of water 20 mg (4 x 5 mg) PO ONCE 1 day 4 tabs 0RF colonoscopy prep Z12.11 - Encounter for screening for malignant neoplasm of colon polyethylene glycol 3350 (Miralax) Take as directed by mouth the day before your procedure. 238 grams PO ONCE 1 day PRN 238 grams 0RF laxative effect Patient Instructions: Colonoscopy MG prep metformin omit eitan before- no dm med day of dicyclomine F/U Rheum Coding Level of Care Code New Pt Level 4 (97512) Diagnoses Abdominal pain R10.9 Family history of colon cancer in mother Z80.0 Irregular bowel habits R19.8 Time Spent (min) 30
[2023-01-10 13:27] VITALS: BP 115/60; PULSE 74; BMI 29.3
== END 2023-01-10 14:16 | disposition home or self-care (01) ==
PROVIDERS: PCP Internal Medicine; Visit Provider Physician Assistant
DX: R10.9 Unspecified abdominal pain (principal); Z80.0 Family history of malignant neoplasm of digestive organs; R19.8 Other specified symptoms and signs involving the digestive system and abdomen
CPT/HCPCS: 99204

== ENCOUNTER → 2023-01-10 13:23 | Outpatient (BNVA) | payer OTHER, SELFPAY | PROVIDERS: PCP Internal Medicine; Visit Provider Physician Assistant ==

== ENCOUNTER 2023-03-16 07:28 | Outpatient (REF) | payer OTHER, SELFPAY ==
[2023-03-16 12:04] LABS: Estimated Average Glucose 151 mg/dL; Hemoglobin A1c % 6.9 % (<6.0)
[2023-03-16 12:22] LABS: Alanine Aminotransferase 20 U/L (0-31); Anion Gap 13 (12-20); Aspartate Amino Transferase 18 U/L (5-31); Blood Urea Nitrogen 12 mg/dL (9-16); Calcium 9.4 mg/dL (8.4-10.2); Carbon Dioxide 24 mmol/L (22-29); Chloride 106 mmol/L (96-108); Cholesterol 126 mg/dL (<200); Estimated Glomerular Filt Rate > 60; Glucose Fasting 121 mg/dL (60-99); HDL Cholesterol 53 mg/dL (>40); LDL Cholesterol Calculated 63 mg/dL (<100); Sodium 139 mmol/L (135-145); Triglycerides 54 mg/dL (<150)
[2023-03-16 12:43] LABS: Creatinine Urine 202.46 mg/dL; Microalbum/Creatinine Ratio Ur 8.3 ug/mg cr (<30)
== END 2023-03-16 07:29 | disposition home or self-care (01) ==
LOC: HO.HMGCLDS 07:28
PROVIDERS: PCP Internal Medicine; Visit Provider Internal Medicine
DX: E11.9 Type 2 diabetes mellitus without complications (principal); E66.9 Obesity, unspecified; Z79.4 Long term (current) use of insulin
CPT/HCPCS: 36415; 80048; 80061; 82043; 82570; 83036; 84450; 84460

== ENCOUNTER 2023-04-17 11:30 | Outpatient (AMB) | payer OTHER, SELFPAY ==
--- NOTE | 2023-04-17 11:32 | A.OFFPC_ITS ---
Vital Signs 04/17/23 11:36 Height 5 ft 2 in Weight 160 lb BMI 29.3 BP 118/76 Blood Pressure Location Rt brachial Position Sitting Pulse 75 Pulse Source Pulse Oximeter Pulse Oximetry (%) 100 Oxygen Delivery Method Room Air Intake Visit Reasons: 3 month follow up/Labs R/S Intake Note: Pt is here today for 3 month follow up and also to discuss labs. Allergies lactose Adverse Reaction (Mild, Uncoded 04/17/23 12:03) Stomach Upset Medication List - Last Reconciled 04/17/23 by Sowmya Castellanos MD bisacodyl (Dulcolax (bisacodyl)) 20 mg (4 x 5 mg) PO ONCE 1 day blood sugar diagnostic (OneTouch Verio test strips) to test blood glucose two times a day blood-glucose meter (OneTouch Verio Flex Meter) to test blood glucose two times a day lancets (OneTouch Delica Lancets) As directed twice a day metformin 500 mg PO BID multivitamin 1 tab PO DAILY Tobacco use date assessed: 04/17/23 Dental Screening Dental Screen Date: 04/17/23 Did you have a dental visit in the last 12 months?: No Did you have a dental problem in the last 6 months where you did not have access to dental care?: No Was dental information given to patient?: Patient has dentist HPI 3 month follow up/Labs R/S HPI Details 43-year-old lady with diabetes mellitus currently on metformin 500 mg per tablet taken 1 tablet twice a day with meals, here today for follow-up. Patient states that she has changed her diet, has been cutting back a lot on her carbohydrates and sweets, eating more vegetables, fish, greens, and has started exercising. She has also been drinking RYZE coffee, which he states has helped reduce her bloating and regulate her bowel movements she is scheduled for an initial screening colonoscopy next month with Dr. Ovalle. She had recent fasting labs done which showed lipids are within she is lower at 6.9%. She goes to [facility] in [place] for her routine eye exam and diabetes retinopathy screening. She has positive family history for rheumatoid arthritis, has recurrent joint pains, had elevated CRP JACKIE robyn,, was seen at [facility] rheumatology and was told that she has fibromyalgia. Patient requested a 2nd opinion, and was referred to Dr. Jones , awaiting appointment [facility] Medical History Irregular bowel habits Family history of colon cancer in mother Arthralgia of multiple joints Positive JACKIE (antinuclear antibody) Elevated C-reactive protein (CRP) Family history of rheumatoid arthritis Diabetes mellitus without complication, with long-term current use of insulin Surgical History History of lumpectomy of right breast History of lumpectomy of left breast History of tubal ligation History of section Family History Father Diabetes mellitus Mother Breast cancer Colon cancer Uterine cancer Anxiety Depression HTN (hypertension) Asthma Stroke Mental health disorder Leiomyosarcoma Fibromyalgia Rheumatoid arthritis Maternal Aunt Stomach cancer Brother No problems noted. Son No problems noted. Daughter No problems noted. 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 1. Little interest or pleasure in doing things: not at all 2. Feeling down, depressed, or hopeless: not at all 3. Trouble falling or staying asleep, or sleeping too much: not at all 4. Feeling tired or having little energy: not at all 5. Poor appetite or overeating: not at all 6. Feeling bad about yourself - or that you are a failure or have let yourself or your family down: not at all 7. Trouble concentrating on things, such as reading the newspaper or watching television: not at all 8. Moving or speaking so slowly that other people could have noticed. Or the opposite - being so fidgety or restless that you have been moving around a lot more than usual: not at all 9. Thoughts that you would be better off or of hurting yourself in some way: not at all Total score: 0 Depression Screening Interpretation: Negative Depression Screening Done: Yes 93425 - PHQ-9 Billing: Yes Source: Developed by Drs. Mk Ireland, Delia Le, Chepe Machuca and colleagues, with an educational caroline from [employer]. Thrive Questionnaire Date Thrive assessed: 04/17/23 I am a: Patient What is your living situation today?: I have a steady place to live Within the past 12 months, did the food you bought not last and you didn't have the money to get more?: Never true Within the past 12 months, did you worry whether your food would run out before you got money to buy more?: Never true Do you have trouble paying for medicines?: No Do you have trouble getting transportation to medical appointments?: No Do you have trouble paying your heating and electricity bill?: No Do you have trouble taking care of your child, family member or friend?: No Do you have trouble with day-to-day activities such as bathing, preparing meals, shopping, managing finances, etc.?: No Are you currently unemployed and looking for a job?: No Are you interested in more education?: No Please select the resources that you would like help with: None Currently or been in a relationship where the following occur: no concerns reported THRIVE Score: 0 AUDIT C Alcohol Use Questionnaire (AUDIT-C) 1. How often do you have a drink containing alcohol?: Never 3. How often do you have six or more drinks on one occasion?: Never Total Score: 0 Score Reviewed/Action Taken: Yes DIANNE-7 AMB Questionnaire DIANNE-7 Date DIANNE - 7 assessed: 04/17/23 Feeling nervous, anxious, or on edge: 0 = Not at all Not being able to stop or control worryin = Not at all Worrying too much about different things: 0 = Not at all Trouble relaxin = Not at all Being so restless that it is hard to sit still: 0 = Not at all Becoming easily annoyed or irritable: 0 = Not at all Feeling afraid as if something awful might happen: 0 = Not at all Total DIANNE-7 score (0-4 normal; 5-9 mild; 10-14 moderate; 15-21 severe): 0 Source: Developed by Drs. Mk Ireland, Delia Le, Chepe Machuca and colleagues, with an educational caroline from [employer] DIANNE-7 Assessment Billing DIANNE-7 Assessment Tool: DIANNE-7 Assessment 35066 Review of Systems Const Denies headache(s) Eyes Details: sees Vision Works at [employer] for her retinopathy screen Denies blurry vision ENT Denies dizziness, Denies dry mouth, Denies headache(s), Denies nasal congestion and Denies sore throat Card Denies chest pain, Denies palpitations and Denies dyspnea Resp Denies cough and Denies dyspnea GI Denies melena, Denies hematochezia, Denies heartburn and Denies nausea Denies urinary frequency and Denies dysuria Musc Reports as per HPI, Denies joint swelling, Denies muscle weakness and Denies numbness Neuro Denies burning sensations, Denies dizziness, Denies headache(s), Denies numbness and Denies paresthesias Psych Reports no additional complaints Endo Denies polydipsia, Denies polyuria and Denies palpitations Chris/Lymph Denies easy bruising Aller/Immun Reports no additional complaints Physical exam (Primary Care) Vital Signs: Last Vital Signs Pulse 75 04/17/23 11:36 BP 118/76 04/17/23 11:36 Pulse Ox 100 04/17/23 11:36 Oxygen Delivery Method Room Air 04/17/23 11:36 BMI result Body Mass Index 29.3 BMI Assessment/Plan discussion: High BMI High, discussed plan: lifestyle, weight reduction, dietary and physical activity Tobacco/Smoking Status: Tobacco use Status Tobacco use date assessed 04/17/23 04/17/23 11:39 Patient Tobacco Use Status Never used Tobacco 04/17/23 11:32 e-Cigarette/Vaping Use Never Used 04/17/23 11:32 PHQ-9: PHQ-9 Score PHQ-9: Total score 0 04/17/23 11:41 Depression Screening Interpretation: Negative Thrive Assessment: Date of Thrive Assessment Date Thrive assessed 04/17/23 04/17/23 11:41 Currently or been in a relationship where the following occur: no concerns reported Const General: cooperative, comfortable and no acute distress Orientation/consciousness: patient oriented x3 HENMT Mouth: Normal oral and palatal mucosa present, oropharynx normal and moist mucous membranes Eyes General: appearance normal, both eyes and all related structures Neck Neck: Yes full ROM, Yes no lymphadenopathy and Yes supple Chest Chest palpation & inspection: normal inspection of the chest Breast/axilla palpation: normal palpation of the breasts Resp Effort & Inspection: normal respiratory effort and able to speak in complete sentences Auscultation: clear to auscultation bilaterally Cardio Rate: regular rate Rhythm: regular rhythm Heart sounds: S1 normal heart sound present and S2 normal heart sound present GI Palpation (GI): Soft to palpation, nontender, no guarding and no masses General: Yes no CVA tenderness Back/Spine/Pelvis Back: no CVA tenderness and No back tenderness Skin General skin exam: no rashes or lesions noted Neuro General: patient oriented x3, gait normal, tone normal, moves all extremities and no focal motor deficits Cognition (Neuro): normal cognition Gait exam (Neuro): Normal gait present Motor exam (neuro): 5/5 motor strength present throughout Extrem General: Yes full ROM, Yes no joint enlargement, Yes no pedal edema, Yes no calf tenderness and Yes normal gait Psych Appearance: grossly normal and well kempt Mental Status: mental status grossly normal Speech and movement: Normal speech and movement present Attitude: cooperative Thought process: Normal thought process present Thought content: Normal thought content present Results Reviewed Results Reviewed: Name: Radha Montgomery Age/Sex: 42/F : 1980 Unit#: [id number] Attend Dr: Sowmya Castellanos MD Re03/16/23 Status: DEP REF Location: [facility] Dis ch: SPEC : [id number] VENTURA: 03/16/23 STATUS: COMP REQ : [id number] RECD: 03/16/23-[address]: Sowmya Castellanos MD COMP: 03/16/23-2 ENTERED: 03/16/[address]: ORDERED: Met Prof Fast, AST, ALT, Lipid Panel Test Result Flag Reference Sodium 139 135-145 mmol/L Potassium 4.0 3.3-5.1 mmol/L CL 106 96-108 mmol/L CO2 24 22-29 mmol/L Gap 13 12-20 BUN 12 9-16 mg/dL Creat 0.81 0.5-1.4 mg/dL EGFR > 60 NOTE: For -[place] individuals, multiply the result by 1.210. Chronic Kidney Disease: Estimated GFR < 60 mL/min/1.73m2 Severe Kidney Disease: Estimated GFR < 15 mL/min/1.73m2 FBS 121 H 60-99 mg/dL A fasting glucose from 100-125 mg/dl is considered impaired (pre-diabetes). CA 9.4 8.4-10.2 mg/dL AST (GOT) 18 5-31 U/L ALT (GPT) 20 0-31 U/L Triglyceride 54 <150 mg/dL Desirable Triglyceride: less than 150 mg/dL Borderline High Triglyceride 150-199 mg/dL High Triglyceride: 200-499 mg/dL Very High Triglyceride: greater than or equal to 5OO mg/dL Cholesterol 126 <200 mg/dL Desirable Cholesterol: less than 200 mg/dL Borderline High Cholesterol: 200-239 mg/dL High Cholesterol: greater than 239 mg/dL LDL Calculated 63 <100 mg/dL Desirable LDL: less than 100 mg/dL Near Optimal/Above Optimal LDL: 110-129 mg/dL Borderline High LDL: 130-159 mg/dL High LDL: 160-189 mg/dL Very High LDL: greater than or equal to 190 mg/dL HDL 53 >40 mg/dL Desirable HDL: greater than 40 mg/dL Assessment and Plan Assessment & Plan (1) Diabetes mellitus without complication, with long-term current use of insulin: Code(s): E11.9 - Type 2 diabetes mellitus without complications; 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 Continue with metformin 500 mg taken 1 tablet twice a day with meals. continue to check fasting blood sugar at home, maintain log and bring to next appointment for review. Reinforced diabetic diet and regular exercise with patient. Counseled regarding importance of yearly diabetes retinopathy screening, goes to [facility] in [place]. Patient advised to inspect feet daily, for any signs of injury, callus or infection. Compliance with diet and regular exercise again stressed. Blood pressure goal is less than 130/80, goal LDL is less than 100 and goal hemoglobin A1c is less than 7% follow-up appointment made in, after fasting labs done. Orders: Orders Microalbumin, Random (w Creat) 08/13/23 E11.9 - Type 2 diabetes mellitus without complications, Z79.4 - half-way (current) use of insulin Aspartate Amino Transferase 08/13/23 E11.9 - Type 2 diabetes mellitus without complications, Z79.4 - half-way (current) use of insulin Basic Metabolic Panel Fasting 08/13/23 E11.9 - Type 2 diabetes mellitus without complications, Z79.4 - half-way (current) use of insulin Vitamin D 25-OH Total 08/13/23 E11.9 - Type 2 diabetes mellitus without complications, Z79.4 - half-way (current) use of insulin Hemoglobin A1c 08/13/23 E11.9 - Type 2 diabetes mellitus without complications, 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
[2023-04-17 11:36] VITALS: BP 118/76; PULSE 75; O2SAT 100; BMI 29.3
== END 2023-04-17 13:59 | disposition home or self-care (01) ==
PROVIDERS: PCP Internal Medicine; Visit Provider Internal Medicine
DX: E11.9 Type 2 diabetes mellitus without complications (principal); Z79.4 Long term (current) use of insulin
CPT/HCPCS: 99213

== ENCOUNTER 2023-06-08 08:51 | Day surgery (SDC) | payer OTHER, SELFPAY ==
--- NOTE | 2023-06-07 09:32 | P.CONAN_ITS ---
Documented by User: Misty Jeffery NP 06/07/23 09:32 HPI - Anesthesia Eval Consult details Narrative: 43yo F for Colonoscopy PMFSH Active Problems Active Problems: All Active Problems Family history of colon cancer in mother (Acute) Positive JACKIE (antinuclear antibody) (Acute) Elevated C-reactive protein (CRP) (Acute) Family history of rheumatoid arthritis (Acute) Diabetes mellitus without complication, with long-term current use of insulin (Acute) Past Medical History Medical History Irregular bowel habits Family history of colon cancer in mother Arthralgia of multiple joints Positive JACKIE (antinuclear antibody) Elevated C-reactive protein (CRP) Family history of rheumatoid arthritis Diabetes mellitus without complication, with long-term current use of insulin Family History Family History Father Diabetes mellitus Mother Breast cancer Colon cancer Uterine cancer Anxiety Depression HTN (hypertension) Asthma Stroke Mental health disorder Leiomyosarcoma Fibromyalgia Rheumatoid arthritis Maternal Aunt Stomach cancer Brother No problems noted. Son No problems noted. Daughter No problems noted. Maternal Grandmother Diabetes mellitus Other Lupus Surgical History Surgical History History of lumpectomy of right breast History of lumpectomy of left breast History of tubal ligation History of section Social History Social History Household Members: Family Housing: House Alcohol intake: never Patient Tobacco Use Status: Never used Tobacco e-Cigarette/Vaping Use: Never Used Second Hand Smoke Exposure: No Have you been hit, kicked, punched, or otherwise hurt by someone within the past year? 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 Cognitive needs: No Hearing needs: No Vision needs: Yes Meds Allergies Allergy/AdvReac Type Severity Reaction Status Date / Time lactose AdvReac Mild Stomach Uncoded 04/17/23 12:03 Upset Home Medications ?Medication ?Instructions ?Recorded ?Confirmed ?Last Taken ?Type multivitamin 1 tab PO DAILY 12/14/22 Unknown History Assessment and Plan Assessment Anesthesia Assessment: Chart Reviewed Documented by User: Phyllis Hernandez MD 06/08/23 10:01 [facility] Past Medical History Medical History Irregular bowel habits Family history of colon cancer in mother Arthralgia of multiple joints Positive JACKIE (antinuclear antibody) Elevated C-reactive protein (CRP) Family history of rheumatoid arthritis Diabetes mellitus without complication, with long-term current use of insulin Family History Family History Father Diabetes mellitus Mother Breast cancer Colon cancer Uterine cancer Anxiety Depression HTN (hypertension) Asthma Stroke Mental health disorder Leiomyosarcoma Fibromyalgia Rheumatoid arthritis Maternal Aunt Stomach cancer Brother No problems noted. Son No problems noted. Daughter No problems noted. Maternal Grandmother Diabetes mellitus Other Lupus Family history of problems with anesthesia: No Surgical History Surgical History History of lumpectomy of right breast History of lumpectomy of left breast History of tubal ligation History of section History of Problems with Anesthesia: No Social History Social History Household Members: Family Housing: House Alcohol intake: never Patient Tobacco Use Status: Never used Tobacco e-Cigarette/Vaping Use: Never Used Second Hand Smoke Exposure: No Have you been hit, kicked, punched, or otherwise hurt by someone within the past year? 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 Cognitive needs: No Hearing needs: No Vision needs: Yes Meds Allergies Allergy/AdvReac Type Severity Reaction Status Date / Time lactose AdvReac Mild Stomach Uncoded 04/17/23 12:03 Upset Home Medications ?Medication ?Instructions ?Recorded ?Confirmed ?Last Taken ?Type multivitamin 1 tab PO DAILY 12/14/22 Unknown History Exam Airway Mallampati Class: II TM Dist: >3cm Neck ROM: Full Heart: rrr Lungs: cta Assessment and Plan Assessment Anesthesia Assessment: Anesthesia Plan Discussed Final Anesthetic Review Family History of Problems with Anesthesia: No History of Problems with Anesthesia: No NPO: Yes ASA Class: II Final Preanesthetic Review: No Changes in Pt Med Stat, Meds/Allgs Chart Reviewed and Consent Obtained/Reviewed Patient Risk: Low Procedure Risk: Low Anesthetic Plan Anesthetic Plan: MAC: Disposition: Standard PACU
--- NOTE | 2023-06-08 09:37 | MHC.SHP ---
Pre-Procedural Eval Section A - 24 Hr Update-Section A only Date of Service: 06/08/23 The patient is an INPATIENT: No The patient has been examined within 24 hours of the surgical procedure. The History & Physical has been completed within 30 days and I have reviewed it.: No Section B - Complete if H&P > 30 days Chief Complaint: screening, abd pain, family hx of colon cancer Relevant Family History (Specify if Yes): Yes Relevant Social History: None Present Medications: see Short Stay Collaborative assessment Medical History: Significant History (Irregular bowel habits Family history of colon cancer in mother Arthralgia of multiple joints Positive JACKIE (antinuclear antibody) Elevated C-reactive protein (CRP) Family history of rheumatoid arthritis Obesity (BMI 30.0-34.9) Diabetes mellitus without complication, with long-term current use of ins) History of Previous Operations: Relevant previous surgery/procedure and date(s) (History of lumpectomy of right breast History of lumpectomy of left breast History of tubal ligation History of section) Allergies: Allergies Allergy/AdvReac Type Severity Reaction Status Date / Time lactose AdvReac Mild Stomach Uncoded 04/17/23 12:03 Upset Review of Systems Sugical H&P ROS: Negative: Constitution, Cardiovascular, Respiratory and Gastrointestinal Exam Surgical H&P Exam: Normal: Heart, Normal: Lungs and Normal: Abdomen Plan Diagnosis/Plan: Unchanged I have reviewed the history and physical and performed a pertinent physical examination on my patient. No changes have occurred unless specified. Time Spent With Patient Time: Total time managing care of this patient today ____ minutes.
[2023-06-08 09:43] LABS: Glucose, Whole Blood 117 mg/dL (60-115)
[2023-06-08 09:49] VITALS: BP 124/77; PULSE 70; RESP 18; TEMP 37.3; O2SAT 100; BMI 29.8
[2023-06-08] MEDS: Lactated Ringers 1,000 ML 100 ML IVCONT (09:55)
--- NOTE | 2023-06-08 10:41 | P.OP_ITS ---
Operative Note Operative Note Date of Service: 06/08/23 Narrative: COLONOSCOPY TILL CECUM Pre-op diagnosis: Colon cancer screening, Family hx of colon cancer (Mom in her 40's). Post-op diagnosis:? Diverticulosis, hemorrhoids Endoscopist:? Manan Ovalle MD Anesthesia:?MAC Consent: Indications for the procedure and potential complications of bleeding, perforation, reaction to medications and missed diagnosis were discussed with the patient and informed consent was obtained. Instrument: Olympus PCF H 190 L variable stiffness pediatric colonoscope Monitoring: Vital signs and clinical assessment, intermittent blood pressure monitoring, continuous EKG monitoring, Pulse oximetry and Carbon Dioxide monitoring were done throughout the procedure. Please see anesthesia flowsheet. Colon withdrawl time was 16 minutes. Procedure: The patient was placed in the left lateral decubitis position and pre-procedure medications were administered. After a digital rectal examination of the ano-rectum, the video colonoscope was inserted into the rectum and advanced through the colon to the cecum. The colonoscope was slowly withdrawn in a retrograde panoramic fashion and the colon mucosa was carefully examined including a retroflexed view of the rectum. Findings and interventions are described below. Procedure Difficulty: Colon was long and tortuous and there was some loop formation Findings: Terminal Ileum: Not evaluated Cecum: Normal Ascending Colon: Normal Transverse Colon: Normal Descending Colon: Normal Sigmoid Colon: Moderate diverticulosis Rectum: Normal Ano-rectum: Small internal hemorrhoids Colon preparation: Excellent [place] Bowel Preparation Scale Right colon; 3 Transverse colon: 3 Left colon; 3 (0 = Unprepared colon segment with mucosa not seen due to solid stool that cannot be cleared. 1 = Portion of mucosa of the colon segment seen, but other areas of the colon segment not well seen due to staining, residual stool and/or opaque liquid. 2 = Minor amount of residual staining, small fragments of stool and/or opaque liquid, but mucosa of colon segment seen well. 3 = Entire mucosa of colon segment seen well with no residual staining, small fragments of stool or opaque liquid) Impression and Post Procedure Diagnosis: Colonoscopy Findings: No polyps were detected Moderate diverticulosis seen in the sigmoid colon Small hemorrhoids on retroflexed exam. Plan: Pt has a FU appointment on 06/18/23 with MARYELLEN Vargas Repeat Colonoscopy in 5 years due to family hx of colon cancer (can revert to routine screening if next colonoscopy is negative). Above findings were reviewed with the patient and relevant handouts were given and the discharge area.
[2023-06-08 11:16] VITALS: BP 94/60; PULSE 70; RESP 16; TEMP 36.8; O2SAT 100
[2023-06-08 11:34] VITALS: BP 120/76; PULSE 66; RESP 18; TEMP 36.7; O2SAT 100
== END 2023-06-08 12:15 | disposition home or self-care (01) ==
PROVIDERS: PCP Internal Medicine; Visit Provider Internal Medicine Gastroenterology
PROC: 0DJD8ZZ Inspection of Lower Intestinal Tract, Via Natural or Artificial Opening Endoscopic (ICD-10-PCS; CPT 45378; principal; 2023-06-08 10:10)
DX: Z12.11 Encounter for screening for malignant neoplasm of colon (principal); Z80.0 Family history of malignant neoplasm of digestive organs; K57.30 Diverticulosis of large intestine without perforation or abscess without bleeding; K64.8 Other hemorrhoids; R19.4 Change in bowel habit; R10.9 Unspecified abdominal pain; E73.9 Lactose intolerance, unspecified; R76.0 Raised antibody titer; E11.9 Type 2 diabetes mellitus without complications; Z79.4 Long term (current) use of insulin; Z79.899 Other long term (current) drug therapy; Z98.890 Other specified postprocedural states
CPT/HCPCS: 45378; 82947; J2704

== ENCOUNTER → 2023-06-08 08:51 | Outpatient (BNV) | payer OTHER, SELFPAY | PROVIDERS: PCP Internal Medicine; Visit Provider Internal Medicine Gastroenterology | DX: Z12.11 Encounter for screening for malignant neoplasm of colon (principal); Z80.0 Family history of malignant neoplasm of digestive organs; K57.30 Diverticulosis of large intestine without perforation or abscess without bleeding; K64.8 Other hemorrhoids | CPT/HCPCS: 45378 ==

== ENCOUNTER 2023-08-20 07:55 | Outpatient (REF) | payer OTHER, SELFPAY ==
[2023-08-20 10:30] LABS: Estimated Average Glucose 143 mg/dL; Hemoglobin A1c % 6.6 % (<6.0)
[2023-08-20 10:54] LABS: Alanine Aminotransferase 12 U/L (0-31); Anion Gap 11 (12-20); Aspartate Amino Transferase 13 U/L (5-31); Blood Urea Nitrogen 14 mg/dL (9-16); Calcium 8.7 mg/dL (8.4-10.2); Carbon Dioxide 21 mmol/L (22-29); Chloride 109 mmol/L (96-108); Cholesterol 109 mg/dL (<200); Estimated Glomerular Filt Rate > 60; Glucose Fasting 127 mg/dL (60-99); HDL Cholesterol 48 mg/dL (>40); LDL Cholesterol Calculated 54 mg/dL (<100); Potassium 3.9 mmol/L (3.3-5.1); Sodium 137 mmol/L (135-145); Triglycerides 38 mg/dL (<150); Vitamin D 25-OH Total 38.9 ng/mL (>30)
[2023-08-20 12:24] LABS: Creatinine Urine 125.48 mg/dL; Microalbum/Creatinine Ratio Ur 4.7 ug/mg cr (<30)
== END 2023-08-20 07:56 | disposition home or self-care (01) ==
LOC: HO.HMGCLDS 07:55
PROVIDERS: PCP Internal Medicine; Visit Provider Internal Medicine
DX: E11.9 Type 2 diabetes mellitus without complications (principal); Z79.4 Long term (current) use of insulin
CPT/HCPCS: 36415; 80048; 80061; 82043; 82306; 82570; 83036; 84450; 84460

== ENCOUNTER 2023-08-21 11:38 | Outpatient (AMB) | payer OTHER, SELFPAY ==
[2023-08-21 12:08] VITALS: BP 134/72; PULSE 75; O2SAT 100; BMI 29.7
--- NOTE | 2023-08-21 12:08 | MHC.PC.OV ---
Vital Signs 08/21/23 12:08 Height 5 ft 2 in Weight 162 lb 8 oz BMI 29.7 BP 134/72 Blood Pressure Location Lt brachial Position Sitting Pulse 75 Pulse Source Pulse Oximeter Pulse Oximetry (%) 100 Oxygen Delivery Method Room Air Intake Visit Reasons: Annual PE Intake Note: Last pap 06/13/22 Last mammogram 08/09/22 Last colonoscopy 06/08/23 last flu shot 12/04/22 Allergies lactose Adverse Reaction (Mild, Uncoded 08/21/23 12:36) Stomach Upset Medication List - Last Reconciled 08/21/23 by Sowmya Castellanos MD blood sugar diagnostic ([employer] Verio test strips) to test blood glucose two times a day blood-glucose meter ([employer] Verio Flex Meter) to test blood glucose two times a day lancets ([employer] Delica Lancets) As directed twice a day metformin 500 mg PO BID multivitamin 1 tab PO DAILY Tobacco use date assessed: 08/21/23 Dental Screening Dental Screen Date: 08/21/23 Did you have a dental visit in the last 12 months?: No Did you have a dental problem in the last 6 months where you did not have access to dental care?: No Was dental information given to patient?: Patient has dentist HPI Annual PE HPI Details 43-year-old lady with diabetes mellitus here today physical exam. She is up-to-date with her cervical cancer screening, with last pap done 06/13/22. She is now due for her mammogram, last 1 was done 08/09/2022, and is up-to-date with her screening colonoscopy done yearly your this year for 08/02/2023. She is has diabetes mellitus currently controlled on metformin with last hemoglobin A1c at 6%.. She has been feeling well with no complaints at present time. [facility] Medical History (Updated 08/27/23 @ 01:37 by Sowmya Castellanos MD) Type 2 diabetes mellitus without complication, without long-term current use of insulin Irregular bowel habits Family history of colon cancer in mother Arthralgia of multiple joints Positive JACKIE (antinuclear antibody) Elevated C-reactive protein (CRP) Family history of rheumatoid arthritis Surgical History Hx of colonoscopy History of lumpectomy of right breast History of lumpectomy of left breast History of tubal ligation History of section Family History Father Diabetes mellitus Mother Breast cancer Colon cancer Uterine cancer Anxiety Depression HTN (hypertension) Asthma Stroke Mental health disorder Leiomyosarcoma Fibromyalgia Rheumatoid arthritis Maternal Aunt Stomach cancer Brother No problems noted. Son No problems noted. Daughter No problems noted. 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 Depression Screening Interpretation: Negative Depression Screening Done: Yes Source: Developed by Drs. Mk Ireland, Delia Le, Chepe Machuca and colleagues, with an educational caroline from [employer]. Thrive Questionnaire Date Thrive assessed: 04/17/23 THRIVE Score: 0 AUDIT C Alcohol Use Questionnaire (AUDIT-C) 1. How often do you have a drink containing alcohol?: Never 3. How often do you have six or more drinks on one occasion?: Never Total Score: 0 Score Reviewed/Action Taken: Yes DIANNE-7 AMB Questionnaire DIANNE-7 Date DIANNE - 7 assessed: 04/17/23 Source: Developed by Drs. Mk Ireland, Delia Le, Chepe Machuca and colleagues, with an educational caroline from [employer]. Review of Systems Const Denies headache(s) Eyes Details: sees [employer] [facility] [place] for her retinopathy screen Denies blurry vision ENT Denies dizziness, Denies dry mouth and Denies headache(s) Card Denies chest pain, Denies palpitations and Denies dyspnea Resp Denies cough and Denies dyspnea GI Denies melena, Denies hematochezia, Denies heartburn and Denies nausea Denies urinary frequency and Denies dysuria Musc Reports as per HPI, Denies joint swelling, Denies muscle weakness and Denies numbness Skin/Breast Denies breast pain, Denies breast mass and Denies rash Neuro Denies dizziness, Denies headache(s), Denies numbness and Denies paresthesias Psych Reports no additional complaints Endo Denies polydipsia, Denies polyuria and Denies palpitations Chris/Lymph Denies easy bruising Aller/Immun Reports no additional complaints Physical exam (Primary Care) Vital Signs: Last Vital Signs Pulse 75 08/21/23 12:08 BP 134/72 08/21/23 12:08 Pulse Ox 100 08/21/23 12:08 Oxygen Delivery Method Room Air 08/21/23 12:08 BMI result Body Mass Index 29.7 Tobacco/Smoking Status: Tobacco use Status Tobacco use date assessed 08/21/23 08/21/23 12:13 Patient Tobacco Use Status Never used Tobacco 08/21/23 12:11 e-Cigarette/Vaping Use Never Used 08/21/23 12:11 Depression Screening Interpretation: Negative Thrive Assessment: Date of Thrive Assessment Date Thrive assessed 04/17/23 08/21/23 12:11 Const General: cooperative, comfortable and no acute distress Orientation/consciousness: patient oriented x3 HENMT Mouth: Normal oral and palatal mucosa present, oropharynx normal and moist mucous membranes Eyes General: appearance normal, both eyes and all related structures Neck Neck: Yes full ROM, Yes no lymphadenopathy and Yes supple Chest Chest palpation & inspection: normal inspection of the chest Breast/axilla palpation: normal palpation of the breasts Resp Effort & Inspection: normal respiratory effort and able to speak in complete sentences Auscultation: clear to auscultation bilaterally Cardio Rate: regular rate Rhythm: regular rhythm Heart sounds: S1 normal heart sound present and S2 normal heart sound present GI Palpation (GI): Soft to palpation, nontender, no guarding and no masses General: Yes no CVA tenderness Back/Spine/Pelvis Back: no CVA tenderness and No back tenderness Skin General skin exam: no rashes or lesions noted Neuro General: patient oriented x3, gait normal, tone normal, moves all extremities and no focal motor deficits Cognition (Neuro): normal cognition Gait exam (Neuro): Normal gait present Motor exam (neuro): 5/5 motor strength present throughout Extrem General: Yes full ROM, Yes no joint enlargement, Yes no pedal edema, Yes no calf tenderness and Yes normal gait Psych Appearance: grossly normal and well kempt Mental Status: mental status grossly normal Speech and movement: Normal speech and movement present Attitude: cooperative Thought process: Normal thought process present Thought content: Normal thought content present Results Reviewed Results Reviewed: Laboratory Tests 11/02/22 03/16/23 08/20/23 07:43 07:32 08:12 Estimat Average Glucose 154 151 143 Hemoglobin A1c % 7.0 H 6.9 H 6.6 H Urine Creatinine 125.48 Urine Microalbumin 6.0 Microalb/Creat Ratio 4.7 noemi: Radha Montgomery Age/Sex: 43/F : 1980 Unit#: [id number] Attend Dr: Sowmya Castellanos MD Re08/20/23 Status: DEP REF Location: [facility] Disch: SPEC : [id number] VENTURA: 08/20/23 STATUS: COMP REQ : [id number] RECD: 08/20/[address]: Sowmya Castellanos MD COMP: 08/20/23 ENTERED: 08/20/[address]: ORDERED: Met Prof Fast, AST, ALT, Lipid Panel, Vitamin D 25-OH Test Result Flag Reference Sodium 137 135-145 mmol/L Potassium 3.9 3.3-5.1 mmol/L CL 109 H 96-108 mmol/L CO2 21 L 22-29 mmol/L Gap 11 L 12-20 BUN 14 9-16 mg/dL Creat 0.81 0.5-1.4 mg/dL EGFR > 60 NOTE: For -Algerian individuals, multiply the result by 1.210. Chronic Kidney Disease: Estimated GFR < 60 mL/min/1.73m2 Severe Kidney Disease: Estimated GFR < 15 mL/min/1.73m2 FBS 127 H 60-99 mg/dL A fasting glucose of 126 mg/dl or greater on more than one occasion is considered diagnostic of diabetes. CA 8.7 # 8.4-10.2 mg/dL AST (GOT) 13 5-31 U/L ALT (GPT) 12 0-31 U/L Triglyceride 38 <150 mg/dL Desirable Triglyceride: less than 150 mg/dL Borderline High Triglyceride 150-199 mg/dL High Triglyceride: 200-499 mg/dL Very High Triglyceride: greater than or equal to 5OO mg/dL Cholesterol 109 <200 mg/dL Desirable Cholesterol: less than 200 mg/dL Borderline High Cholesterol: 200-239 mg/dL High Cholesterol: greater than 239 mg/dL LDL Calculated 54 <100 mg/dL Desirable LDL: less than 100 mg/dL Near Optimal/Above Optimal LDL: 110-129 mg/dL Borderline High LDL: 130-159 mg/dL High LDL: 160-189 mg/dL Very High LDL: greater than or equal to 190 mg/dL HDL 48 >40 mg/dL Desirable HDL: greater than 40 mg/dL Note: This HDL assay may give artificially low results in patients with liver disease. Vit D 25-OH Tot 38.9 >30 ng/mL Health Based Reference Values* < 20 ng/mL Deficient 20-30 ng/mL Insufficient > 30 ng/mL Sufficient Assessment and Plan Assessment & Plan (1) Annual visit for general adult medical examination with abnormal findings: Code(s): Z00.01 - Encounter for general adult medical examination with abnormal findings Plan: Recent fasting lab results reviewed with patient. Recommended dental visit every 6 months and regular eye exams, at least every 2 years, sees [facility], up-to-date with her cervical cancer screening, has an appointment for her screening mammogram already scheduled. She is up-to-date with her screening colonoscopy, gets it every 5 years due to positive family history for colon cancer. Up-to-date with her vaccines (2) Type 2 diabetes mellitus without complication, without long-term current use of insulin: Code(s): E11.9 - Type 2 diabetes mellitus without complications Plan: Diabetes mellitus stable and controlled on metformin, with last hemoglobin A1c at 6%. Up-to-date with her diabetes retinopathy screening Orders: Orders Hemoglobin A1c 02/13/24 E11.9 - Type 2 diabetes mellitus without complications, Z00.01 - Encounter for general adult medical examination with abnormal findings, Z79.4 - detention (current) use of insulin Alanine Aminotransferase 02/13/24 E11.9 - Type 2 diabetes mellitus without complications, Z00.01 - Encounter for general adult medical examination with abnormal findings, Z79.4 - detention (current) use of insulin Aspartate Amino Transferase 02/13/24 E11.9 - Type 2 diabetes mellitus without complications, Z00.01 - Encounter for general adult medical examination with abnormal findings, Z79.4 - bed bug exterminator (current) use of insulin Basic Metabolic Panel Fasting 02/13/24 E11.9 - Type 2 diabetes mellitus without complications, Z00.01 - Encounter for general adult medical examination with abnormal findings, Z79.4 - bed bug exterminator (current) use of insulin Microalbumin, Random (w Creat) 02/13/24 E11.9 - Type 2 diabetes mellitus without complications, Z00.01 - Encounter for general adult medical examination with abnormal findings, Z79.4 - bed bug exterminator (current) use of insulin Coding Level of Care Code Est Pt Prev Care 40-64y(44295) Diagnoses Annual visit for general adult medical examination with abnormal findings Z00.01 Type 2 diabetes mellitus without complication, without long-term current use of insulin E11.9
== END 2023-08-21 12:39 | disposition home or self-care (01) ==
PROVIDERS: PCP Internal Medicine; Visit Provider Internal Medicine
DX: Z00.00 Encounter for general adult medical examination without abnormal findings (principal); E11.9 Type 2 diabetes mellitus without complications
CPT/HCPCS: 99396

== ENCOUNTER 2023-09-19 12:52 | Outpatient (AMB) | payer OTHER, SELFPAY ==
[2023-09-19 13:11] VITALS: BP 128/70; PULSE 83; O2SAT 100; BMI 30.2
--- NOTE | 2023-09-19 13:11 | A.OFFPC_ITS ---
Vital Signs 09/19/23 13:11 Height 5 ft 2 in Weight 165 lb BMI 30.2 BP 128/70 Blood Pressure Location Lt brachial Position Sitting Pulse 83 Pulse Source Pulse Oximeter Pulse Oximetry (%) 100 Oxygen Delivery Method Room Air Intake Visit Reasons: HDF anemia Intake Note: Pt is here today for her HDF Allergies lactose Adverse Reaction (Mild, Uncoded 09/20/23 00:49) Stomach Upset Medication List - Last Reconciled 09/20/23 by Sowmya Castellanos MD blood sugar diagnostic ([employer] Verio test strips) to test blood glucose two times a day blood-glucose meter ([employer] Verio Flex Meter) to test blood glucose two times a day lancets ([employer] Delica Lancets) As directed twice a day metformin 500 mg PO BID multivitamin 1 tab PO DAILY Tobacco use date assessed: 09/19/23 Dental Screening Dental Screen Date: 09/19/23 Did you have a dental visit in the last 12 months?: No Did you have a dental problem in the last 6 months where you did not have access to dental care?: No Was dental information given to patient?: Patient has dentist HPI HDF anemia HPI Details 43-year-old lady with diabetes mellitus here today for follow-up after 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 Patient does report having occasional episodes of lightheadedness when she gets up from a sitting position, but denies any chest pain, no shortness of breath, no palpitations. She had a screening colonoscopy done 06/08/2023, which showed knee showed presence of moderate diverticulosis and internal hemorrhoids, which were nonbleeding. She does report heavier periods, which last least 6 days with the 1st 4 days heavy. [facility], [facility] Medical History Microcytic hypochromic anemia Type 2 diabetes mellitus without complication, without long-term current use of insulin Irregular bowel habits Family history of colon cancer in mother Arthralgia of multiple joints Positive JACKIE (antinuclear antibody) Elevated C-reactive protein (CRP) Family history of rheumatoid arthritis Surgical History Hx of colonoscopy History of lumpectomy of right breast History of lumpectomy of left breast History of tubal ligation History of section Family History Father Diabetes mellitus Mother Breast cancer Colon cancer Uterine cancer Anxiety Depression HTN (hypertension) Asthma Stroke Mental health disorder Leiomyosarcoma Fibromyalgia Rheumatoid arthritis Maternal Aunt Stomach cancer Brother No problems noted. Son No problems noted. Daughter No problems noted. 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 1. Little interest or pleasure in doing things: not at all 2. Feeling down, depressed, or hopeless: not at all 3. Trouble falling or staying asleep, or sleeping too much: not at all 4. Feeling tired or having little energy: not at all 5. Poor appetite or overeating: not at all 6. Feeling bad about yourself - or that you are a failure or have let yourself or your family down: not at all 7. Trouble concentrating on things, such as reading the newspaper or watching television: not at all 8. Moving or speaking so slowly that other people could have noticed. Or the opposite - being so fidgety or restless that you have been moving around a lot more than usual: not at all 9. Thoughts that you would be better off or of hurting yourself in some way: not at all Total score: 0 Depression Screening Interpretation: Negative Depression Screening Done: Yes 52025 - PHQ-9 Billing: Yes Source: Developed by Drs. Mk Ireland, Delia Le, Chepe Machuca and colleagues, with an educational caroline from [employer]. Thrive Questionnaire Date Thrive assessed: 09/19/23 I am a: Patient What is your living situation today?: I have a steady place to live Within the past 12 months, did the food you bought not last and you didn't have the money to get more?: Never true Within the past 12 months, did you worry whether your food would run out before you got money to buy more?: Never true Do you have trouble paying for medicines?: No Do you have trouble getting transportation to medical appointments?: No Do you have trouble paying your heating and electricity bill?: No Do you have trouble taking care of your child, family member or friend?: No Do you have trouble with day-to-day activities such as bathing, preparing meals, shopping, managing finances, etc.?: No Are you currently unemployed and looking for a job?: No Are you interested in more education?: No Please select the resources that you would like help with: Housing/Halfway Currently or been in a relationship where the following occur: No concerns reported THRIVE Score: 0 AUDIT C Alcohol Use Questionnaire (AUDIT-C) 1. How often do you have a drink containing alcohol?: Never Total Score: 0 DIANNE-7 AMB Questionnaire DIANNE-7 Date DIANNE - 7 assessed: 09/19/23 Feeling nervous, anxious, or on edge: 0 = Not at all Not being able to stop or control worryin = Not at all Worrying too much about different things: 0 = Not at all Trouble relaxin = Not at all Being so restless that it is hard to sit still: 0 = Not at all Becoming easily annoyed or irritable: 0 = Not at all Feeling afraid as if something awful might happen: 0 = Not at all Total DIANNE-7 score (0-4 normal; 5-9 mild; 10-14 moderate; 15-21 severe): 0 Source: Developed by Drs. Mk Ireland, Delia Le, hCepe Machuca and colleagues, with an educational caroline from [employer]. DIANNE-7 Assessment Billing IDANNE-7 Assessment Tool: DIANNE-7 Assessment 69241 Review of Systems Const All systems reviewed & are unremarkable except as noted in HPI and below Physical exam (Primary Care) Vital Signs: Last Vital Signs Pulse 83 09/19/23 13:11 BP 128/70 09/19/23 13:11 Pulse Ox 100 09/19/23 13:11 Oxygen Delivery Method Room Air 09/19/23 13:11 BMI result Body Mass Index 30.2 Tobacco/Smoking Status: Tobacco use Status Tobacco use date assessed 09/19/23 09/19/23 13:14 Patient Tobacco Use Status Never used Tobacco 09/19/23 13:14 e-Cigarette/Vaping Use Never Used 09/19/23 13:14 PHQ-9: PHQ-9 Score PHQ-9: Total score 0 09/19/23 13:58 Depression Screening Interpretation: Negative Thrive Assessment: Date of Thrive Assessment Date Thrive assessed 09/19/23 09/19/23 13:14 Currently or been in a relationship where the following occur: No concerns reported Const General: cooperative, comfortable and no acute distress Orientation/consciousness: patient oriented x3 HENMT Mouth: Normal oral and palatal mucosa present, oropharynx normal and moist mucous membranes Eyes Other: Will palpebral conjunctiva, anicteric General: appearance normal, both eyes and all related structures Neck Neck: Yes full ROM, Yes no lymphadenopathy and Yes supple Chest Chest palpation & inspection: normal inspection of the chest Breast/axilla palpation: normal palpation of the breasts Resp Effort & Inspection: normal respiratory effort and able to speak in complete sentences Auscultation: clear to auscultation bilaterally Cardio Rate: regular rate Rhythm: regular rhythm Heart sounds: S1 normal heart sound present and S2 normal heart sound present GI Palpation (GI): Soft to palpation, nontender, no guarding and no masses General: Yes no CVA tenderness Back/Spine/Pelvis Back: no CVA tenderness and No back tenderness Skin General skin exam: no rashes or lesions noted Neuro General: patient oriented x3, gait normal, tone normal, moves all extremities and no focal motor deficits Cognition (Neuro): normal cognition Gait exam (Neuro): Normal gait present Motor exam (neuro): 5/5 motor strength present throughout Extrem General: Yes full ROM, Yes no joint enlargement, Yes no pedal edema, Yes no calf tenderness and Yes normal gait Assessment and Plan Assessment & Plan (1) Microcytic hypochromic anemia: Code(s): D50.9 - Iron deficiency anemia, unspecified Plan: Ordered iron profile, TSH with reflex free T4 and hemoglobin electrophoresis panel, referred to Dr. Liang for further evaluation management Orders: Orders IRON PROFILE 09/19/23 D50.9 - Iron deficiency anemia, unspecified Hemoglobin Electrophoresis 09/19/23 D50.9 - Iron deficiency anemia, unspecified TSH reflex Free T4 09/19/23 D50.9 - Iron deficiency anemia, unspecified Referrals Hematology & Oncology Referral D50.9 - Iron deficiency anemia, unspecified Coding Level of Care Code Est Pt Level 4 (89891) Diagnoses Microcytic hypochromic anemia D50.9 Additional Codes DIANNE-7 Assessment Billing - DIANNE-7 Assessment Tool: DIANNE-7 Assessment 22380 ([id number])
== END 2023-09-19 14:17 | disposition home or self-care (01) ==
PROVIDERS: PCP Internal Medicine; Visit Provider Internal Medicine
DX: D50.9 Iron deficiency anemia, unspecified (principal)
CPT/HCPCS: 99214

== ENCOUNTER 2023-09-20 07:37 | Outpatient (REF) | payer OTHER, SELFPAY ==
[2023-09-20 10:47] LABS: Iron 77 mcg/dL (30-160); Percent Iron Saturation 18 % (15-50); Total Iron Binding Capacity 424 mcg/dL (228-428); Unsaturated Iron Binding 347 ug/dL
[2023-09-20 10:55] LABS: TSH reflex Free T4 2.55 uIU/mL (0.32-4.0)
[2023-09-24 14:43] LABS: Hemoglobin 7.8 g/dL (11.7-15.5); MCH 16.3 pg (27.0-33.0); MCV 60.4 fL (80.0-100.0); RDW 20.3 % (11.0-15.0)
== END 2023-09-20 07:38 | disposition home or self-care (01) ==
LOC: HO.HMGCLDS 07:37
PROVIDERS: PCP Internal Medicine; Visit Provider Internal Medicine
DX: D50.9 Iron deficiency anemia, unspecified (principal)
CPT/HCPCS: 36415; 83020; 83540; 84443; 85014; 85018; 85041

== ENCOUNTER → 2023-10-09 14:25 | Outpatient (RCR) | payer OTHER, SELFPAY ==
--- NOTE | 2019-12-12 16:49 | HO.HEMONCTE1 ---
[facility] Telehealth - Telehealth Location of Provider rendering services: oncology office Patient Identification confirmed using: Name, : Yes Patient verbally consented to billing insurance company: Yes Patient informed of any privacy concerns related to visit: Yes Medical Summary - Medical Summary Chief complaint: follow-up for genetic testing. Medical Summary: Diagnosis: Family history of Leiomyosarcoma, in mom. Interval History Interval history: This is a pleasant 39-year-old lady with whom a tele interview was held. She tells me she herself has been doing fine. She denies having noticed any lumps anywhere. Denies any headache no dizziness. No chest pain or trouble breathing. She denies any abdominal pain nausea vomiting heartburn indigestion. Bowels are working without any gross blood in it. She enjoys a good appetite. She has gained weight. Her mom is not that good. She has her days. She has widely metastatic leiomyosarcoma. They have done everything they could, in terms of chemo and radiation. She denies having noticed any lumps anywhere. Review of Systems - Constitutional Reports no additional constitutional complaints - Eyes Reports no additional eye complaints - ENT Reports no additional ear, nose, mouth, and throat complaints - Cardiovascular Reports no additional cardiovascular complaints - Respiratory Reports no additional respiratory complaints - Gastrointestinal Reports no additional gastrointestinal complaints - Genitourinary Reports no additional female genitourinary complaints - Musculoskeletal Reports no additional musculoskeletal complaints - Integumentary/Breasts Skin/Breast: Reports no additional skin complaints - Neurologic Reports no additional neurologic complaints Home Medications and Allergies Allergies Allergy/AdvReac Type Severity Reaction Status Date / Time lactose Allergy Mild Stomach Uncoded 12/12/19 15:35 Upset Progress Note: A/P (1) Genetic testing of female Status: Acute Assessment and plan: This is a pleasant 39-year-old lady with a strong family history of Cancer. With her mom having ovarian breast colon cancer and the Leiomyosarcoma, possibilities include: 1. BRCA 1 or 2 mutations. 2. p53 mutation. She finally brought the results of her mom's genetic testing. 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 In addition, it has been described in prostate and ovarian cancer cohorts. l proceeded with genetic testing for BRCA 1 and 2. The results: Genetic results: Negative no clinically significant mutation identified. A couple of variants of uncertain significance were seen. PLAN: I have shared the results with her. Reassured her that she does not have any of the mutations that her mom does. However she should still be vigilant about the routine screenings. All her questions were answered to her satisfaction. She will continue to follow up with her primary care doc. 25 minutes were spent coordinating her care review of results and counseling. Thank you, CC: Dr. Brown. Code Status FULL CODE - Time Spent With Patient Total time spent is greater than 50% in coordination of care (as documented) at patient's floor/unit and/or counseling patient: 15 - 24 minutes
--- NOTE | 2022-09-06 16:20 | MHC.HEMONCMA ---
faxed genetic testing to [facility] in [place] for patient, fax number [phone]
== END | disposition home or self-care (01) ==
LOC: HO.ONC 12-12 15:35
PROVIDERS: PCP Internal Medicine; Visit Provider Internal Medicine Medical Oncology
DX: Z71.2 Person consulting for explanation of examination or test findings (principal); Z80.3 Family history of malignant neoplasm of breast; Z80.0 Family history of malignant neoplasm of digestive organs; Z80.8 Family history of malignant neoplasm of other organs or systems

== ENCOUNTER → 2023-10-19 14:39 | Outpatient (BNV) | payer OTHER, SELFPAY | PROVIDERS: PCP Internal Medicine; Referring Provider Internal Medicine; Visit Provider Internal Medicine Medical Oncology | DX: D50.9 Iron deficiency anemia, unspecified (principal) | CPT/HCPCS: 99204; 99213 ==

== ENCOUNTER 2024-05-08 20:15 | Emergency (ER) | payer OTHER, SELFPAY ==
[2024-05-08 20:21] VITALS: BP 138/81; PULSE 69; RESP 18; TEMP 36.8; O2SAT 100; BMI 27.4
[2024-05-09 01:47] VITALS: BP 144/72; PULSE 61; RESP 18; TEMP 36.9; O2SAT 100
--- NOTE | 2024-05-09 02:20 | ED.ANIMALBIT ---
HPI - Animal Bite General Chief Complaint: Animal Bite Stated Complaint: right hand injury cut Time Seen by Provider: 05/09/24 02:18 Source: patient Mode of arrival: ambulatory Limitations: no limitations History of Present Illness ED Provider: HPI narrative: Patient is pretty got a dog bite on her right hand from her own on dog who is fully immunized patient received tetanus showed about 13 years ago comes here with 2 bite salvador on the right hand Related Data Home Medications ?Medication ?Instructions ?Recorded ?Confirmed multivitamin 1 tab PO DAILY 12/14/22 01/18/24 Previous Rx's ?Medication ?Instructions ?Recorded blood-glucose meter (OneTouch #1 ea 08/10/20 Verio Flex Meter) lancets 33 gauge (OneTouch Delica #100 ea 08/10/20 Lancets) blood sugar diagnostic (OneTouch #100 ea 09/12/21 Verio test strips) ascorbic acid (vitamin C) 500 mg 500 mg PO BID #60 tabs 10/19/23 chewable tablet (Vitamin C) ferrous sulfate 325 mg (65 mg 325 mg PO BID #60 tabs 10/19/23 iron) tablet metformin 500 mg tablet 500 mg PO BID #180 tabs 12/11/23 amoxicillin 875 mg-potassium 1 tab PO BID #20 tabs 05/09/24 clavulanate 125 mg tablet Allergies Allergy/AdvReac Type Severity Reaction Status Date / Time lactose AdvReac Mild Stomach Uncoded 05/08/24 20:22 Upset Review of Systems Review of Systems: Yes all other systems are reviewed and are negative PMFSH Past Medical History Medical History Microcytic hypochromic anemia Type 2 diabetes mellitus without complication, without long-term current use of insulin Irregular bowel habits Family history of colon cancer in mother Arthralgia of multiple joints Positive JACKIE (antinuclear antibody) Elevated C-reactive protein (CRP) Family history of rheumatoid arthritis Surgical History Hx of colonoscopy History of lumpectomy of right breast History of lumpectomy of left breast History of tubal ligation History of section Family History Family History Father Diabetes mellitus Mother Breast cancer Colon cancer Uterine cancer Anxiety Depression HTN (hypertension) Asthma Stroke Mental health disorder Leiomyosarcoma Fibromyalgia Rheumatoid arthritis Maternal Aunt Stomach cancer Brother No problems noted. Son No problems noted. Daughter No problems noted. 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 Oriented X3. No acute distress. Eyes: no pallor or icterus ENT: Pharynx normal. Oral Mucosa moist Neck: Normal inspection. Neck supple. CVS: Normal heart rate and rhythm. Pulses normal. Respiratory: No respiratory distress. Equal air entry bilateral, no wheezing/rales/rhonchi Abd: soft, not tender Skin: Skin warm and dry. Normal skin color. Normal skin turgor. Extremities: No lower extremity edema, no calf tenderness 2.5 cm laceration of the base of the right thumb and another 0.5 cm laceration at the same area Neuro: Oriented X 3. Medications Administered Discontinued Medications Generic Name Dose Route Start Last Admin Trade Name Freq PRN Reason Stop Dose Admin Amoxicillin/Clavulanate Potassium 875 mg 05/09/24 02:37 05/09/24 02:56 Amoxicillin/Potassium Clav 875 Mg Tablet PO 05/09/24 02:38 875 mg ONCE ONE Administration Bacitracin 1 appl 05/09/24 03:12 05/09/24 03:17 Bacitracin Oint 0.9 Gm Packet TOPICAL 05/09/24 03:13 1 appl ONCE ONE Administration Protocol Diphtheria/Tetanus/Acell Pertussis 0.5 ml 05/09/24 02:37 05/09/24 02:55 Diphth,Pertus(Acell),Tet Adult 0.5 Ml Syringe IM 05/09/24 02:38 0.5 ml .ONCE ONE Administration Lidocaine HCl 2 ml 05/09/24 02:37 05/09/24 02:56 Lidocaine Hcl 1 % Mpf 2 Ml Vial INFILTRATI 05/09/24 02:38 2 ml ONCE ONE Administration Lidocaine HCl 2 ml 05/09/24 03:45 05/09/24 03:47 Lidocaine Hcl 1 % Mpf 2 Ml Vial INFILTRATI 05/09/24 03:46 2 ml ONCE ONE Administration Medical Decision Making Medical Decision Making MDM Narrative: Patient with dog bite from immunized out was given tetanus shot loose sutures was applied to the wound in a bundle was given follow up as outpatient Procedures Laceration Laceration 1: Site: hand Side (If applicable): right Size (cm): 3 Description: linear Depth: simple, single layer Local Anesthetic: lidocaine 1% Amount of anesthesia used (mL): 3 Pre-repair: irrigated extensively and deep structures intact Skin layer closed with: nylon Size (cm): 5-0 Number of sutures: 5 Technique: simple, interrupted Discharge Plan Discharge Clinical Impression: Dog bite Patient Disposition: Home, Self-Care Instructions: Animal Bite (ED) Additional Instructions: Local care as advised Take antibiotic as prescribed Suture removal in 7-10 days Prescriptions: New amoxicillin-pot clavulanate 875-125 mg tablet 1 tab PO BID Qty: 20 0RF No Action (DME) OneTouch Verio test strips Strip See Rx Instructions .ROUTE .MEDSUPPLY Qty: 100 11RF Rx Instructions: to test blood glucose two times a day metformin 500 mg tablet 500 mg PO BID Qty: 180 1RF ferrous sulfate 325 mg (65 mg iron) Tablet 325 mg PO BID Qty: 60 3RF ascorbic acid (vitamin C) [Vitamin C] 500 mg Tablet,Chewable 500 mg PO BID Qty: 60 3RF (DME) blood-glucose meter [OneTouch Verio Flex meter] Misc See Rx Instructions .ROUTE .MEDSUPPLY Qty: 1 0RF Rx Instructions: to test blood glucose two times a day (DME) lancets [OneTouch Delica Lancets] 33 gauge misc See Rx Instructions .ROUTE .MEDSUPPLY Qty: 100 6RF Rx Instructions: As directed twice a day multivitamin Tablet 1 tab PO DAILY Interventions: ED Discharge Assessment Last Done: 05/09/24 03:44 Discharge Date/Time: 05/09/24 03:48 Print Language: Serbian
[2024-05-09] MEDS: Diphth,Pertus(ACell),Tet Adult 0.5 ML SYRINGE IM (02:55)
[2024-05-09] MEDS: Amoxicillin/Potassium Clav 875 MG TABLET PO (02:56)
[2024-05-09] MEDS: Lidocaine HCl 1 % MPF 2 ML VIAL INFILTRATI ×2 (02:56→03:47)
[2024-05-09] MEDS: Bacitracin Oint 0.9 GM PACKET 1 APPL TOPICAL (03:17)
[2024-05-09 03:44] VITALS: BP 142/82; PULSE 68; RESP 16; TEMP 36.7; O2SAT 100
== END 2024-05-09 03:48 | disposition home or self-care (01) ==
LOC: HO.ED 05-09 03:15
PROVIDERS: Emergency Provider Internal Medicine; PCP Internal Medicine
DX: S61.411A Laceration without foreign body of right hand, initial encounter (principal); W54.0XXA Bitten by dog, initial encounter; Y93.9 Activity, unspecified; Y92.019 Unspecified place in single-family (private) house as the place of occurrence of the external cause; Y99.9 Unspecified external cause status; Z23 Encounter for immunization
CPT/HCPCS: 12002; 90471; 90715; 99283; 99284; J2003

== ENCOUNTER 2024-05-17 07:47 | Outpatient (REF) | payer OTHER, SELFPAY ==
[2024-05-17 12:01] LABS: Estimated Average Glucose 197 mg/dL; Hemoglobin A1C 193.8119 umol/L; Hemoglobin A1c % 8.5 % (<6.0); Total Hemoglobin (HGBA1C) 2786.1301 umol/L
[2024-05-17 12:06] LABS: Anion Gap 11 (12-20); Aspartate Amino Transferase 26 U/L (5-31); Blood Urea Nitrogen 11 mg/dL (9-16); Calcium 8.9 mg/dL (8.4-10.2); Carbon Dioxide 22 mmol/L (22-29); Chloride 108 mmol/L (96-108); Estimated Glomerular Filt Rate > 60; Glucose Fasting 164 mg/dL (60-99); Potassium 3.9 mmol/L (3.3-5.1); Sodium 137 mmol/L (135-145)
[2024-05-17 12:20] LABS: Creatinine Urine 190.96 mg/dL; Microalbum/Creatinine Ratio Ur 4.7 ug/mg cr (<30)
== END 2024-05-17 07:48 | disposition home or self-care (01) ==
LOC: HO.HMGCLDS 07:47
PROVIDERS: PCP Internal Medicine; Visit Provider Internal Medicine
DX: Z00.00 Encounter for general adult medical examination without abnormal findings (principal); E11.9 Type 2 diabetes mellitus without complications; Z79.4 Long term (current) use of insulin
CPT/HCPCS: 36415; 80048; 82043; 82570; 83036; 84450

== ENCOUNTER 2024-05-19 13:38 | Outpatient (AMB) | payer OTHER, SELFPAY ==
--- NOTE | 2024-05-19 13:57 | MHC.PC.OV ---
Vital Signs 05/19/24 13:59 Height 5 ft 2 in Weight 163 lb BMI 29.8 BP 102/78 Blood Pressure Location Lt brachial Position Sitting Respiration 17 Pulse 73 Pulse Source Pulse Oximeter Temp 98.3 F Temp Source Oral Pulse Oximetry (%) 100 Oxygen Delivery Method Room Air Intake Visit Reasons: f/u labs Intake Note: Pt is here today for her lab results f/u Allergies lactose Adverse Reaction (Mild, Uncoded 05/26/24 02:30) Stomach Upset Medication List - Last Reconciled 05/26/24 by Sowmya Castellanos MD ascorbic acid (vitamin C) (Vitamin C) 500 mg PO BID blood sugar diagnostic (NuORDER Verio test strips) to test blood glucose two times a day blood-glucose meter (NuORDER Verio Flex Meter) to test blood glucose two times a day ferrous sulfate 325 mg PO BID lancets ([employer] Delica Lancets) As directed twice a day metformin 500 mg PO BID multivitamin 1 tab PO DAILY Tobacco use date assessed: 05/19/24 Dental Screening Dental Screen Date: 05/19/24 Did you have a dental visit in the last 12 months?: No Did you have a dental problem in the last 6 months where you did not have access to dental care?: No Was dental information given to patient?: Patient has dentist HPI f/u labs HPI Details 44-year-old lady with diabetes mellitus, here today for follow-up. Currently taking metformin 500 mg 1 tablet twice a day with meals. She has been checking her blood sugar at home and it has been running from between 180-250 mg/dL. Latest labs showed hemoglobin A1c at 8.5%., with normal electrolytes and renal function.. Patient states that she has not been taking her medications as directed and has not been very compliant with diet, and no exercise at all. [facility] Medical History (Updated 05/19/24 @ 14:04 by Sowmya Castellanos MD) Diabetes mellitus with hyperglycemia, without long-term current use of insulin Microcytic hypochromic anemia Irregular bowel habits Family history of colon cancer in mother Arthralgia of multiple joints Positive JACKIE (antinuclear antibody) Elevated C-reactive protein (CRP) Family history of rheumatoid arthritis Surgical History Hx of colonoscopy History of lumpectomy of right breast History of lumpectomy of left breast History of tubal ligation History of section Family History Father Diabetes mellitus Mother Breast cancer Colon cancer Uterine cancer Anxiety Depression HTN (hypertension) Asthma Stroke Mental health disorder Leiomyosarcoma Fibromyalgia Rheumatoid arthritis Maternal Aunt Stomach cancer Brother No problems noted. Son No problems noted. Daughter No problems noted. 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 1. Little interest or pleasure in doing things: not at all 2. Feeling down, depressed, or hopeless: not at all 3. Trouble falling or staying asleep, or sleeping too much: not at all 4. Feeling tired or having little energy: not at all 5. Poor appetite or overeating: not at all 6. Feeling bad about yourself - or that you are a failure or have let yourself or your family down: not at all 7. Trouble concentrating on things, such as reading the newspaper or watching television: not at all 8. Moving or speaking so slowly that other people could have noticed. Or the opposite - being so fidgety or restless that you have been moving around a lot more than usual: not at all 9. Thoughts that you would be better off or of hurting yourself in some way: not at all Total score: 0 Depression Screening Interpretation: Negative Depression Screening Done: Yes 71099 - PHQ-9 Billing: Yes Source: Developed by Drs. Mk Ireland, Delia Le, Chepe Machuca and colleagues, with an educational caroline from [employer]. Thrive Questionnaire Date Thrive assessed: 05/19/24 I am a: Patient What is your living situation today?: I have a steady place to live Within the past 12 months, did the food you bought not last and you didn't have the money to get more?: Never true Within the past 12 months, did you worry whether your food would run out before you got money to buy more?: Never true Do you have trouble paying for medicines?: No Do you have trouble getting transportation to medical appointments?: No Do you have trouble paying your heating and electricity bill?: No Do you have trouble taking care of your child, family member or friend?: No Do you have trouble with day-to-day activities such as bathing, preparing meals, shopping, managing finances, etc.?: No Are you currently unemployed and looking for a job?: No Are you interested in more education?: No Please select the resources that you would like help with: None Currently or been in a relationship where the following occur: No concerns reported THRIVE Score: 0 AUDIT C Alcohol Use Questionnaire (AUDIT-C) 1. How often do you have a drink containing alcohol?: Never Total Score: 0 DIANNE-7 AMB Questionnaire DIANNE-7 Date DIANNE - 7 assessed: 05/19/24 Feeling nervous, anxious, or on edge: 0 = Not at all Not being able to stop or control worryin = Not at all Worrying too much about different things: 0 = Not at all Trouble relaxin = Not at all Being so restless that it is hard to sit still: 0 = Not at all Becoming easily annoyed or irritable: 0 = Not at all Feeling afraid as if something awful might happen: 0 = Not at all Total DIANNE-7 score (0-4 normal; 5-9 mild; 10-14 moderate; 15-21 severe): 0 Source: Developed by Drs. Mk Ireland, Delia Le, Chepe Machuca and colleagues, with an educational caroline from [employer]. 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 Denies blurry vision ENT Denies dizziness, Denies dry mouth and Denies headache(s) Card Denies chest pain, Denies palpitations and Denies dyspnea Resp Denies cough and Denies dyspnea GI Denies melena, Denies hematochezia, Denies heartburn and Denies nausea Denies urinary frequency and Denies dysuria Musc Reports as per HPI, Denies joint swelling, Denies muscle weakness and Denies numbness Skin/Breast Denies breast pain, Denies breast mass and Denies rash Neuro Denies dizziness, Denies headache(s), Denies numbness and Denies paresthesias Psych Reports no additional complaints Endo Denies polydipsia, Denies polyuria and Denies palpitations Chris/Lymph Denies easy bruising Aller/Immun Reports no additional complaints Physical exam (Primary Care) Vital Signs: Last Vital Signs Temp 98.3 F 05/19/24 13:59 Pulse 73 05/19/24 13:59 Resp 17 05/19/24 13:59 BP 102/78 05/19/24 13:59 Pulse Ox 100 05/19/24 13:59 Oxygen Delivery Method Room Air 05/19/24 13:59 BMI result Body Mass Index 29.8 Tobacco/Smoking Status: Tobacco use Status Tobacco use date assessed 05/19/24 05/19/24 14:02 Patient Tobacco Use Status Never used Tobacco 05/19/24 14:02 e-Cigarette/Vaping Use Never Used 05/19/24 14:02 PHQ-9: PHQ-9 Score PHQ-9: Total score 0 05/19/24 14:32 Depression Screening Interpretation: Negative Thrive Assessment: Date of Thrive Assessment Date Thrive assessed 05/19/24 05/19/24 14:02 Currently or been in a relationship where the following occur: No concerns reported Const General: cooperative, comfortable and no acute distress Orientation/consciousness: patient oriented x3 HENMT Mouth: Normal oral and palatal mucosa present, oropharynx normal and moist mucous membranes Eyes General: appearance normal, both eyes and all related structures Neck Neck: Yes full ROM, Yes no lymphadenopathy and Yes supple Chest Chest palpation & inspection: normal inspection of the chest Breast/axilla palpation: normal palpation of the breasts Resp Effort & Inspection: normal respiratory effort and able to speak in complete sentences Auscultation: clear to auscultation bilaterally Cardio Rate: regular rate Rhythm: regular rhythm Heart sounds: S1 normal heart sound present and S2 normal heart sound present GI Palpation (GI): Soft to palpation, nontender, no guarding and no masses General: Yes no CVA tenderness Back/Spine/Pelvis Back: no CVA tenderness and No back tenderness Skin General skin exam: no rashes or lesions noted Neuro General: patient oriented x3, gait normal, tone normal, moves all extremities and no focal motor deficits Cognition (Neuro): normal cognition Gait exam (Neuro): Normal gait present Motor exam (neuro): 5/5 motor strength present throughout Extrem General: Yes full ROM, Yes no joint enlargement, Yes no pedal edema, Yes no calf tenderness and Yes normal gait Results Reviewed Results Reviewed: Laboratory Tests 05/17/24 07:52 Estimat Average Glucose 197 Hemoglobin A1c % 8.5 H Name: Radha Montgomery Age/Sex: 44/F : 1980 Unit#: [id number] Attend Dr: Sowmya Castellanos MD Re05/17/24 Status: DEP REF Location: [facility] [address] Disch: SPEC : [id number] VENTURA: 05/17/24 STATUS: COMP REQ : [id number] RECD: 05/17/24-[address]: Sowmya Castellanos MD COMP: 05/17/241206 ENTERED: 05/17/24-[address]: ORDERED: Met Prof Fast, AST Test Result Flag Reference Sodium 137 135-145 mmol/L Potassium 3.9 3.3-5.1 mmol/L CL 108 96-108 mmol/L CO2 22 22-29 mmol/L Gap 11 L 12-20 BUN 11 9-16 mg/dL Creat 0.76 0.5-1.4 mg/dL eGFR > 60 Chronic Kidney Disease: Estimated GFR < 60 mL/min/1.73m2 Severe Kidney Disease: Estimated GFR < 15 mL/min/1.73m2 FBS 164 H 60-99 mg/dL A fasting glucose of 126 mg/dl or greater on more than one occasion is considered diagnostic of diabetes. CA 8.9 # 8.4-10.2 mg/dL AST (GOT) 26 5-31 U/L Coding Level of Care Code Est Pt Level 4 (42772) Complex EM visit Add On G2211 Diagnoses Diabetes mellitus with hyperglycemia, without long-term current use of insulin E11.65 Additional Codes PHQ-9 - 23180 - PHQ-9 Billing: Yes ([id number]) DIANNE-7 Assessment Billing - DIANNE-7 Assessment Tool: DIANNE-7 Assessment 14841 ([id number]) Assessment & Plan Assessment & Plan (1) Diabetes mellitus with hyperglycemia, without long-term current use of insulin: Code(s): E11.65 - Type 2 diabetes mellitus with hyperglycemia Category: Medical Plan: Patient has not been taking her medicines as directed, Will continue on metformin 500 mg 1 tablet twice a day and stressed importance of taking medicines as directed. Reinforced importance of adhering to recommended diet and getting regular exercise. Reminded to get yearly diabetes eye checks. Will repeat labs again in 3 months and will make further adjustments in medications if diabetes still not well controlled. Orders: Orders Basic Metabolic Panel Fasting 08/16/24 E11.65 - Type 2 diabetes mellitus with hyperglycemia Lipid Panel 08/16/24 E11.65 - Type 2 diabetes mellitus with hyperglycemia Hemoglobin A1c 08/16/24 E11.65 - Type 2 diabetes mellitus with hyperglycemia Alanine Aminotransferase 08/16/24 E11.65 - Type 2 diabetes mellitus with hyperglycemia Aspartate Amino Transferase 08/16/24 E11.65 - Type 2 diabetes mellitus with hyperglycemia
[2024-05-19 13:59] VITALS: BP 102/78; PULSE 73; RESP 17; TEMP 36.8; O2SAT 100; BMI 29.8
== END 2024-05-19 14:24 | disposition home or self-care (01) ==
LOC: HO.HMCC 13:38
PROVIDERS: PCP Internal Medicine; Visit Provider Internal Medicine
DX: E11.65 Type 2 diabetes mellitus with hyperglycemia (principal)

== ENCOUNTER → 2024-05-19 13:38 | Outpatient (BNVA) | payer OTHER, SELFPAY | PROVIDERS: PCP Internal Medicine; Visit Provider Internal Medicine | DX: E11.65 Type 2 diabetes mellitus with hyperglycemia (principal); Z79.84 Long term (current) use of oral hypoglycemic drugs | CPT/HCPCS: 96127 ==

== ENCOUNTER 2024-08-27 08:11 | Outpatient (REF) | payer OTHER, SELFPAY ==
[2024-08-27 10:40] LABS: Hemoglobin A1C 149.3410 umol/L; Total Hemoglobin (HGBA1C) 2774.1960 umol/L
[2024-08-27 11:09] LABS: Alanine Aminotransferase 21 U/L (0-31); Anion Gap 8 (12-20); Aspartate Amino Transferase 22 U/L (5-31); Blood Urea Nitrogen 14 mg/dL (9-16); Calcium 8.8 mg/dL (8.4-10.2); Carbon Dioxide 26 mmol/L (22-29); Chloride 108 mmol/L (96-108); Cholesterol 126 mg/dL (<200); Estimated Glomerular Filt Rate > 60; HDL Cholesterol 48 mg/dL (>40); Potassium 3.7 mmol/L (3.3-5.1); Sodium 138 mmol/L (135-145); Triglycerides 61 mg/dL (<150)
== END 2024-08-27 08:12 | disposition home or self-care (01) ==
LOC: HO.HMGCLDS 08:11
PROVIDERS: PCP Internal Medicine; Visit Provider Internal Medicine
DX: E11.65 Type 2 diabetes mellitus with hyperglycemia (principal)
CPT/HCPCS: 36415; 80048; 80061; 83036; 84450; 84460

== ENCOUNTER 2024-08-28 11:31 | Outpatient (AMB) | payer OTHER, SELFPAY ==
--- NOTE | 2024-08-28 11:40 | A.OFFPC_ITS ---
Vital Signs 08/28/24 11:49 Height 5 ft 2 in Weight 165 lb BMI 30.2 BP 118/76 Blood Pressure Location Rt brachial Position Sitting Respiration 16 Pulse 64 Pulse Source Pulse Oximeter Temp 98.2 F Temp Source Oral Pulse Oximetry (%) 99 Oxygen Delivery Method Room Air Intake Visit Reasons: annual exam Intake Note: Pt is here today for her PE: last mammogram 08/25/24, papsmear 06/13/22, colonoscopy 06/08/23 Is last menstrual period known: Yes Last menstrual period: 08/18/24 Allergies lactose Adverse Reaction (Mild, Uncoded 08/28/24 12:11) Stomach Upset Medication List - Last Reconciled 08/28/24 by Sowmya Castellanos MD ascorbic acid (vitamin C) (Vitamin C) 500 mg PO BID blood sugar diagnostic ([employer] Verio test strips) to test blood glucose two times a day blood-glucose meter ([employer] Verio Flex Meter) to test blood glucose two times a day ferrous sulfate 325 mg PO BID lancets ([employer] Lancets) As directed twice a day metformin 500 mg PO BID multivitamin 1 tab PO DAILY Tobacco use date assessed: 08/28/24 Dental Screening Dental Screen Date: 08/28/24 Did you have a dental visit in the last 12 months?: No Did you have a dental problem in the last 6 months where you did not have access to dental care?: No Was dental information given to patient?: Patient has dentist HPI annual exam HPI Details 44-year-old lady with history of diabete s mellitus, currently on metformin 500 mg 1 tablet twice a day, and history of anemia currently on ferrous sulfate 325 mg 1 tablet twice a day, here today for her physical exam. She is up-to-date with her screening mammogram done earlier this year, had a normal Pap in 2022 and a screening colonoscopy done in 2023 which showed presence of diverticulosis and internal hemorrhoids, done by Dr. Ovalle, repeat due again in 2033. Her diabetes mellitus is better controlled now as compared to last check, currently taking metformin 500 mg 1 tablet twice a day, tolerating medication well. No microalbuminuria present. [facility], [facility] Medical History (Updated 08/28/24 @ 12:21 by Sowmya Castellanos MD) Family history of breast cancer in mother Dense breast tissue on mammogram Diabetes mellitus with hyperglycemia, without long-term current use of insulin Microcytic hypochromic anemia Irregular bowel habits Family history of colon cancer in mother Arthralgia of multiple joints Positive JACKIE (antinuclear antibody) Elevated C-reactive protein (CRP) Family history of rheumatoid arthritis Surgical History Hx of colonoscopy History of lumpectomy of right breast History of lumpectomy of left breast History of tubal ligation History of section Family History Father Diabetes mellitus Mother Breast cancer Colon cancer Uterine cancer Anxiety Depression HTN (hypertension) Asthma Stroke Mental health disorder Leiomyosarcoma Fibromyalgia Rheumatoid arthritis Maternal Aunt Stomach cancer Brother No problems noted. Son No problems noted. Daughter No problems noted. 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 [employer] Cognitive needs: No Hearing needs: No Vision needs: Yes Female Reproductive History Menstrual Date of last menstrual period: 08/18/24 Questionnaire Thrive Questionnaire Date Thrive assessed: 05/19/24 I am a: Patient What is your living situation today?: I have a steady place to live Within the past 12 months, did the food you bought not last and you didn't have the money to get more?: Never true Within the past 12 months, did you worry whether your food would run out before you got money to buy more?: Never true Do you have trouble paying for medicines?: No Do you have trouble getting transportation to medical appointments?: No Do you have trouble paying your heating and electricity bill?: No Do you have trouble taking care of your child, family member or friend?: No Do you have trouble with day-to-day activities such as bathing, preparing meals, shopping, managing finances, etc.?: No Are you currently unemployed and looking for a job?: No Are you interested in more education?: No Please select the resources that you would like help with: None Currently or been in a relationship where the following occur: No concerns reported THRIVE Score: 0 AUDIT C Alcohol Use Questionnaire (AUDIT-C) 1. How often do you have a drink containing alcohol?: Never Total Score: 0 Score Reviewed/Action Taken: Yes DIANNE-7 AMB Questionnaire DIANNE-7 Date DIANNE - 7 assessed: 05/19/24 Source: Developed by Drs. Mk Ireland, Delia Le, Chepe Machuca and colleagues, with an educational caroline from [employer]. Review of Systems Const Denies body aches, Denies difficulty sleeping, Denies fatigue, Denies headache(s) and Denies weakness Eyes Details: Has an appointment to see vision works in [employer] for diabetes retinopathy Denies blurry vision ENT Denies dizziness, Denies dry mouth and Denies headache(s) Card Denies chest pain, Denies palpitations and Denies dyspnea Resp Denies cough and Denies dyspnea GI Denies melena, Denies hematochezia, Denies heartburn and Denies nausea Denies urinary frequency and Denies dysuria Musc Denies joint swelling, Denies muscle weakness and Denies numbness Skin/Breast Denies breast pain, Denies breast mass and Denies rash Neuro Denies dizziness, Denies headache(s), Denies numbness, Denies paresthesias and Denies weakness Psych Reports no additional complaints Endo Denies fatigue, Denies polydipsia, Denies polyuria and Denies palpitations Chris/Lymph Denies easy bruising Aller/Immun Reports no additional complaints Physical exam (Primary Care) Vital Signs: Last Vital Signs Temp 98.2 F 08/28/24 11:49 Pulse 64 08/28/24 11:49 Resp 16 08/28/24 11:49 BP 118/76 08/28/24 11:49 Pulse Ox 99 08/28/24 11:49 Oxygen Delivery Method Room Air 08/28/24 11:49 BMI result Body Mass Index 30.2 Tobacco/Smoking Status: Tobacco use Status Tobacco use date assessed 08/28/24 08/28/24 11:46 Patient Tobacco Use Status Never used Tobacco 08/28/24 11:42 e-Cigarette/Vaping Use Never Used 08/28/24 11:42 Thrive Assessment: Date of Thrive Assessment Date Thrive assessed 04/07/25 07/17/25 11:42 Currently or been in a relationship where the following occur: No concerns reported Const General: cooperative, comfortable and no acute distress Orientation/consciousness: patient oriented x3 HENMT Mouth: Normal oral and palatal mucosa present, oropharynx normal and moist mucous membranes Eyes General: appearance normal, both eyes and all related structures Neck Neck: Yes full ROM, Yes no lymphadenopathy and Yes supple Chest Chest palpation & inspection: normal inspection of the chest Breast/axilla palpation: normal palpation of the breasts Resp Effort & Inspection: normal respiratory effort and able to speak in complete sentences Auscultation: clear to auscultation bilaterally Cardio Rate: regular rate Rhythm: regular rhythm Heart sounds: S1 normal heart sound present and S2 normal heart sound present GI Palpation (GI): Soft to palpation, nontender, no guarding and no masses General: Yes no CVA tenderness Back/Spine/Pelvis Back: no CVA tenderness and No back tenderness Skin General skin exam: no rashes or lesions noted Neuro General: patient oriented x3, gait normal, tone normal, moves all extremities and no focal motor deficits Cognition (Neuro): normal cognition Gait exam (Neuro): Normal gait present Motor exam (neuro): 5/5 motor strength present throughout Extrem General: Yes full ROM, Yes no joint enlargement, Yes no pedal edema, Yes no calf tenderness and Yes normal gait Psych Appearance: grossly normal and well kempt Speech and movement: Normal speech and movement present Affect: normal affect Results Reviewed Results Reviewed: Name: Radha Montgomery Age/Sex: 44/F : 1980 Unit#: [id number] Attend Dr: Sowmya Castellanos MD Re08/27/24 Status: DEP REF Location: [facility] Disch: SPEC : [id number] VENTURA: 08/27/24 STATUS: COMP REQ : [id number] RECD: 08/27/[address]: Sowmya Castellanos MD COMP: 08/27/24 ENTERED: 08/27/[address]: ORDERED: Met Prof Fast, AST, ALT, Lipid Panel Test Result Flag Reference Sodium 138 135-145 mmol/L Potassium 3.7 3.3-5.1 mmol/L CL 108 96-108 mmol/L CO2 26 22-29 mmol/L Gap 8 L 12-20 BUN 14 9-16 mg/dL Creat 0.78 0.5-1.4 mg/dL eGFR > 60 Chronic Kidney Disease: Estimated GFR < 60 mL/min/1.73m2 Severe Kidney Disease: Estimated GFR < 15 mL/min/1.73m2 FBS 131 H 60-99 mg/dL A fasting glucose of 126 mg/dl or greater on more than one occasion is considered diagnostic of diabetes. CA 8.8 8.4-10.2 mg/dL AST (GOT) 22 5-31 U/L ALT (GPT) 21 0-31 U/L Triglyceride 61 <150 mg/dL Desirable Triglyceride: less than 150 mg/dL Borderline High Triglyceride 150-199 mg/dL High Triglyceride: 200-499 mg/dL Very High Triglyceride: greater than or equal to 5OO mg/dL Cholesterol 126 <200 mg/dL Desirable Cholesterol: less than 200 mg/dL Borderline High Cholesterol: 200-239 mg/dL High Cholesterol: greater than 239 mg/dL LDL Calculated 66 <100 mg/dL Desirable LDL: less than 100 mg/dL Near Optimal/Above Optimal LDL: 110-129 mg/dL Borderline High LDL: 130-159 mg/dL High LDL: 160-189 mg/dL Very High LDL: greater than or equal to 190 mg/dL HDL 48 >40 mg/dL Desirable HDL: greater than 40 mg/dL Note: This HDL assay may give artificially low results in patients with liver disease. Name: Radha Montgomery Age/Sex: 44/F : 1980 Unit#: [id number] Attend Dr: Sowmya Castellanos MD Re08/27/24 Status: DEP REF Location: [facility] Disch: SPEC : [id number] VENTURA: 08/27/24 STATUS: COMP REQ : [id number] RECD: 08/27/[address]: Sowmya Castellanos MD COMP: 08/27/24 ENTERED: 08/27/[address] [facility]: ORDERED: Hgb A1c Test Result Flag Reference A1c % 7.1 H <6.0 % Hemoglobin A1C Reference Range Adults: 4.8 - 6.0 % Non diabetic: < 6.0 % Goal: < 7.0 % Additional Action Suggested: > 8.0 % Note: Hemoglobin A1c results are invalid for patients with abnormal amounts of HbF. Blood tr ansfusions may impact the HbA1c concentration in the patient sample. Est. Avg. Gluc 157 mg/dL eAG = Estimated average glucose which is %A1C expressed as average glucose, using the formula of the [id number] Average Glucose study (ADAG), Diabetes Care, Vol.31,#8, 2007 Name: Radha Montgomery Age/Sex: 44/F : 1980 Unit#: [id number] Attend Dr: Sowmya Castellanos MD Re05/17/24 Status: DEP REF Location: [facility] Disch: SPEC : [id number] VENTURA: 05/17/24 STATUS: COMP REQ : [id number] RECD: 05/17/24-[address]: Sowmya Castellanos MD COMP: 05/17/24122 ENTERED: 05/17/24-[address]: ORDERED: MICARU Test Result Flag Reference Creat, Ur 190.96 mg/dL Microalbumin Ur 9.0 mg/L Alb/Creat Ratio 4.7 <30 ug/mg cr Albumin/Creatinine Ratio Reference Ranges: Normal: < 30 ug/mg creatinine Microalbuminuria: 30 - 300 ug/mg creatinine Clinical Albuminuria: > 300 ug/mg creatinine Coding Level of Care Code Est Pt Prev Care 40-64y(76884) Diagnoses Annual visit for general adult medical examination with abnormal findings Z. Dense breast tissue on mammogram R92.30 Family history of breast cancer in mother Z80.3 Diabetes mellitus with hyperglycemia, without long-term current use of insulin E11.65 Advanced directives, counseling/discussion Z71.89 Assessment & Plan Assessment & Plan (1) Annual visit for general adult medical examination with abnormal findings: Code(s): Z00.01 - Encounter for general adult medical examination with abnormal findings Plan: Reviewed recent fasting lab results with patient. Reminded to get her CBC and iron levels done ordered by Dr. Liang Recommended dental visit every 6 months and regular eye exams, every year at [facility], already has an appointment. She sees [facility] OBGYN for routine Pap and pelvic exam, has an appointment already scheduled for October 2024, reminded to get copy of her Pap smear re port forwarded to us.. Take adequate calcium in diet and vitamin-D 3 at 2000 IU per cap once a day, in addition to weight-bearing exercises to help maintain good muscle tone and weight control. Instructed to do self-breast exam, and up-to-date with her yearly mammogram, done at [facility] imaging and radiology at [place] which showed presence of dense breasts, breast ultrasound ordered. Up-to-date with all her vaccines Pneumovax 23. Colonoscopy screening was done last year by Dr. Ovalle which showed presence of internal hemorrhoids and diverticulosis, repeat due again in 5 years due to positive family history of colon cancer in mother (2) Dense breast tissue on mammogram: Code(s): R92.30 - Dense breasts, unspecified Category: Medical Plan: Bilateral breast ultrasound ordered, to be done at [facility] radiology and imaging in [place] (3) Family history of breast cancer in mother: Code(s): Z80.3 - Family history of malignant neoplasm of breast Category: Medical Plan: Bilateral breast ultrasound ordered (4) Diabetes mellitus with hyperglycemia, without long-term current use of insulin: Code(s): E11.65 - Type 2 diabetes mellitus with hyperglycemia Category: Medical Plan: Diabetes mellitus better controlled now with hemoglobin A1c at 7.1%, continue with adherence to lifestyle changes, regular exercise and healthy eating, will repeat another hemoglobin A1c lipids electrolytes in January 2025 (5) Advanced directives, counseling/discussion: Code(s): Z71.89 - Other specified counseling Plan: Initiated the conversation about Advanced Directives. Advanced Directives help patients prepare for current and future decisions about their medical treatment and place of care. Discussed with patient that it is a process where a patients current condition and prognosis are reviewed, their wishes for information regarding their illness are elicited, and likely medical dilemmas are presented and options discussed. Healthcare proxy form completed today. The form can be amended as needed, reviewed yearly and make changes as needed Orders: Orders US breast LT complete 08/28/24 R92.30 - Dense breasts, unspecified, Z80.3 - Family history of malignant neoplasm of breast Aspartate Amino Transferase 01/17/25 E11.65 - Type 2 diabetes mellitus with hyperglycemia Basic Metabolic Panel Fasting 01/17/25 E11.65 - Type 2 diabetes mellitus with hyperglycemia Lipid Panel 01/17/25. - Type 2 diabetes mellitus with hyperglycemia Vitamin D 25-OH Total 01/17/25. - Type 2 diabetes mellitus with hyperglycemia breast RT complete 08/28/24 R92.30 - Dense breasts, unspecified, Z80.3 - Family history of malignant neoplasm of breast Hemoglobin A1c 01/17/25. - Type 2 diabetes mellitus with hyperglycemia Alanine Aminotransferase 01/17/25. - Type 2 diabetes mellitus with hyperglycemia
[2024-08-28 11:49] VITALS: BP 118/76; PULSE 64; RESP 16; TEMP 36.8; O2SAT 99; BMI 30.2
== END 2024-08-28 13:17 | disposition home or self-care (01) ==
LOC: HO.HMCC 11:32
PROVIDERS: PCP Internal Medicine; Visit Provider Internal Medicine
DX: Z00.01 Encounter for general adult medical examination with abnormal findings (principal); R92.30 Dense breasts, unspecified; Z80.3 Family history of malignant neoplasm of breast; E11.65 Type 2 diabetes mellitus with hyperglycemia; Z71.89 Other specified counseling

== ENCOUNTER 2024-08-29 07:57 | Outpatient (REF) | payer OTHER, SELFPAY ==
--- OUTSIDE RECORDS SUMMARY | 2024-08-29 08:00 | XMS_ITS | Clinical Summary ---
Author Organization [facility] Address [address] [address] Phone Care Team Providers Care Admitting Officer Name Role Phone Sowmya Castellanos MD Primary Care Provider Unavailable Allergies No known active allergies Medications metFORMIN (GLUCOPHAGE) 500 MG tablet Take 500 mg by mouth 2 (two) times a day with meals. Active MULTIVITAMIN ORAL Take by mouth. Active Active Problems Problem Noted Date Diagnosed Date Myalgia 09/25/2023 Assessment & Plan (09/25/2023 11:02 AM EDT): Exacerbated by severe stress during the period of her mother's illness and ; now significantly improved with lifestyle modification including regular exercise routine. No historical physical or serologic evidence concerning for underlying inflammatory arthritis and no current indication for ongoing rheum-specific mgmt. Reviewed relationship between stress / fatigue and pain with patient today. Happy to re-evaluate for any clinically significant change, e.g. acutely swollen or inflamed joint (in the absence of trauma). Elevated C-reactive protein (CRP) 09/25/2023 Assessment & Plan (09/25/2023 10:59 AM EDT): Mild / borderline CRP elevation x2 (10/2022 and 08/2023) not clinically significant and not elevated enough to be concerning, caitlyn in context of entire clinical picture. JACKIE positive 09/25/2023 Overview (09/25/2023): 1:320 DFS (10/2022) Assessment & Plan (09/25/2023 11:01 AM EDT): Dense fine speckled pattern not commonly associated with underlying autoimmune disease; JACKIE is generally not indicated as part of the w/u for myalgias or generalized pain. No historical physical or specific serologic evidence concerning for SLE or other connective tissue disease; updated routine labs for patient reassurance today but no current indication for full ENAs or complements. Type 2 diabetes mellitus wit h hyperglycemia, without long-term current use of insulin 04/06/2020 Assessment & Plan (04/06/2020 8:44 AM EST): Patient feeling off for the last few days since starting her menstrual cycle She checked nonfasting blood sugar this morning it was noted to be greater than 300 She denies polyuria, polydipsia, polyphagia She denies personal history of diabetes She advised to go to a local urgent care for in-person evaluation and probable additional labs She will need to establish with a primary care provider for ongoing management and treatment of probable new diagnosis of diabetes Family History Medical History Relation Comments Diabetes Father Stomach cancer Maternal Aunt Diabetes Maternal Grandmother Anxiety disorder Mother Asthma Mother Breast cancer Mother Colon cancer Mother Depression Mother Fibromyalgia Mother Hypertension Mother Other Mother Leiomyosarcoma Rheumatoid arthritis Mother Stroke Mother Uterine cancer Mother Relation Status Comments Father Maternal Aunt Maternal Grandmother Mother Social History Tobacco Use Types Packs/Day Years Used Date Smoking Tobacco: Never Assessed Education Answer Date Recorded Are you interested in more education? Not on rima e 06/09/2022 Are you concerned about learning? Not on file 06/09/2022 No 06/09/2022 No 06/09/2022 Digital Access Answer Date Recorded No 07/08/2022 No 07/08/2022 Reliable internet access at home? Not on file 07/08/2022 Device with a working camera? Not on file Comments Unknown Sex and Gender Information Value Date Recorded Sex Assigned at Not on file Legal Sex Female 9:08 AM EST Gender Identity Not on file Sexual Orientation Not on file Last Filed Vital Signs Vital Sign Reading Time Taken Comments Blood Pressure 118/62 09/18/2023 8:52 AM EDT Pulse - - Temperature - - Respiratory Rate - - Oxygen Saturation - - Inhaled Oxygen Concentration - - Weight 75.2 kg (165 lb 12.8 oz) 09/18/2023 8:52 AM EDT Height - - Body Mass Index - - Plan of Treatment Health Maintenance Due Date Last Done Comments CREATININE LEVEL 1980 HEMOGLOBIN A1C 1978 DEPRESSION SCREENING 1990 SMOKING Hx and SMOKELESS TOBACCO SCREENING 04/13/1991 HEPATITIS C SCREENING 1996 HIV ONE-TIME SCREENING (18-65 YEARS) 1996 LIPID PANEL 1996 PAP SMEAR 04/13/1999 MAMMOGRAM 2018 DIABETIC EYE EXAM 04/06/2020 URINE MICROALBUMIN/CREATININE RATIO 04/06/2020 Adult Td,Tdap Booster 08/17/2021 08/18/2011 COLOGUARD 04/13/2023 COLONOSCOPY 04/13/2023 COLORECTAL CANCER SCREENING 04/13/2023 FIT TEST 04/13/2023 FOBT 04/13/2023 SIGMOIDOSCOPY 04/13/2023 VIRTUAL COLONOSCOPY 04/13/2023 COVID-19 VACCINE ( season) 2023 12/27/2020, 05/24/2020, 05/13/2020, Additional history exists BLOOD PRESSURE 03/20/2024 09/18/2023 PNEUMOCOCCAL VACCINES (0-49 years) Completed 05/11/2022 HEPATITIS A VACCINES Aged Out No long er eligible based on patient's age to complete this topic HIB VACCINES Aged Out No longer eligi ble based on patient's age to complete this topic MENINGOCOCCAL VACCINES (ACWY) Aged Out No longer eligible based on patient's age to complete this topic MENINGOCOCCAL VACCINES (B) Aged Out N o longer eligible based on patient's age to complete this topic Medical Devices Not on file Insurance [facility] PPO PPO PPO PPO [facility] [place] [address] [place] [address] PPO Care Teams Admitting Officer Relationship Specialty Start Date End Date Sowmya Castellanos MD PCP - General Internal Medicine 02/27/23 Additional Source Comments The information contained in this document represents components of the legal health record. It is not the complete legal health record.[facility]
[2024-08-29 10:13] LABS: MANUAL DIFF FLAG NO
[2024-08-29 10:21] LABS: Hematocrit 34.5 % (37.0-47.0); Hemoglobin 10.6 g/dl (12.0-16.0); Imm Gran Abs Auto 0.01 X10*3/uL (0.00-0.03); Imm Gran Pct Auto 0.1 % (0.0-0.4); Lymphocytes Absolute Auto 2.4 X10*3/uL (1.2-4.9); Mean Corpuscular HGB Conc 30.7 g/dl (31.0-35.0); Mean Corpuscular Hemoglobin 21.5 pg (27.0-33.0); Mean Corpuscular Volume 69.8 fL (80.0-98.0); NRBC Abs Auto 0.000 X10*3/uL (0.0-0.012); NRBC Pct Auto 0.0 /100WBC (0.0-0.2); Platelet Count 330 X10*3/uL (160-400); Red Blood Count 4.94 X10*6/uL (4.20-5.50); White Blood Count 6.9 X10*3/uL (4.8-10.8)
[2024-08-29 10:58] LABS: Alanine Aminotransferase 20 U/L (0-31); Albumin Level 4.0 g/dL (3.5-5.0); Alkaline Phosphatase 55 U/L (39-117); Anion Gap 11 (12-20); Aspartate Amino Transferase 18 U/L (5-31); Blood Urea Nitrogen 10 mg/dL (9-16); Calcium 8.7 mg/dL (8.4-10.2); Carbon Dioxide 25 mmol/L (22-29); Chloride 107 mmol/L (96-108); Estimated Glomerular Filt Rate > 60; Potassium 3.7 mmol/L (3.3-5.1); Sodium 139 mmol/L (135-145); Total Protein 7.0 g/dL (6.5-8.0)
[2024-08-29 11:22] LABS: Ferritin 10 ng/mL (10-250)
== END 2024-08-29 07:58 | disposition home or self-care (01) ==
LOC: HO.HMGCLDS 07:57
PROVIDERS: PCP Internal Medicine; Visit Provider Internal Medicine Medical Oncology
DX: D50.9 Iron deficiency anemia, unspecified (principal)
CPT/HCPCS: 36415; 80053; 82728; 85025